=== PATIENT | male | born 1955 | race Caucasian/White ===

== ENCOUNTER → 2022-02-21 08:33 | Outpatient (CLI) | payer OTHER, SELFPAY | PROVIDERS: PCP Family Medicine; Referring Provider Family Medicine; Visit Provider Family Medicine | DX: E11.621 Type 2 diabetes mellitus with foot ulcer (principal); L97.515 Non-pressure chronic ulcer of other part of right foot with muscle involvement without evidence of necrosis; R60.0 Localized edema; L53.9 Erythematous condition, unspecified; L03.115 Cellulitis of right lower limb; Z89.421 Acquired absence of other right toe(s); R53.81 Other malaise; R53.83 Other fatigue; E11.42 Type 2 diabetes mellitus with diabetic polyneuropathy | CPT/HCPCS: 11042; 99204; 99214 ==

== ENCOUNTER 2022-02-21 09:48 | Inpatient (IN) | payer MEDICARE, SELFPAY ==
[2022-02-21] VITALS (15 sets, daily range): BP systolic 128–150; BP diastolic 70–84; PULSE 69–115; RESP 11–25; TEMP 36–37.1; O2SAT 95–99; BMI 28.7
--- NOTE | 2022-02-21 10:16 | DI.RAD.S_ITS ---
PROCEDURE: XR FOOT RT MIN 3V INDICATIONS: deep tunnel wound TECHNIQUE: 3 views of the foot were acquired. COMPARISON: None. FINDINGS: Bones: Remote resection of the distal phalanx of the great toe and fusion of the PIP joints of the 2nd, 3rd, and 4th toes, and screw fixation of the heads of the 2nd and 3rd metatarsals. Midfoot degenerative change. Question early Charcot joint. No plain film evidence of osteomyelitis. No fractures or dislocations. No suspicious bony lesions. Soft tissues: No tibiotalar joint effusion. Achilles tendon appears normal. No soft tissue gas or radiopaque foreign body. IMPRESSION: Postoperative change. No plain film evidence of osteomyelitis. Comment: If suspect osteomyelitis, consider foot MRI with and without contrast. Dictated by: Benoit Baker M.D. on 02/21/2022 at 10:57 Approved by: Benoit Baker M.D. on 02/21/2022 at 10:59
--- NOTE | 2022-02-21 10:27 | PC.NURSE ---
Patient reports feeling tired over the weekend just not myself Being followed by podiatry for wound infection on right foot. Saw Dr Whaley this morning had some debridment and packing done. Patient has redness noted to top and bottom of foot with streaking up crowell.
[2022-02-21 10:32] LABS: Add Manual Diff / Slide Review NO; Basophils Absolute Auto 0 /uL (0-100); Basophils Percent Auto 0.3 % (0-2); Eosinophils Absolute Auto 0 /uL (0-450); Eosinophils Percent Auto 0.1 % (2-4); Hematocrit 43.7 % (41-53); Hemoglobin 14.5 g/dL (13.5-17.5); Lymphocytes Absolute Auto 800 /uL (1100-4500); Lymphocytes Percent Auto 5.3 % (25-40); Mean Corpuscular HGB Conc 33.3 % (30-36); Mean Corpuscular Hemoglobin 28.5 PG (26-34); Mean Corpuscular Volume 85.6 fL (80-100); Monocytes Absolute Auto 900 /uL (0-900); Neutrophils Absolute Auto 12600 /uL (1500-7000); Neutrophils Percent Auto 88.3 % (50-75); Platelet Count 137 X10^3/uL (150-400); Red Cell Distribution Width 14.1 % (11.6-14.8); White Blood Cell Count 14.3 X10^3/uL (4.5-11.0)
[2022-02-21 10:39] LABS: INR 1.3 (0.9-1.3)
[2022-02-21 10:41] LABS: PTT Partial Thromboplastin Tim 33 SECONDS (26-36)
[2022-02-21 10:42] LABS: Lactate (Lactic Acid) 1.3 mmol/L (0.7-2.1)
[2022-02-21 10:43] LABS: Alanine Aminotransferase 20 IU/L (<50); Albumin 4.4 g/dL (3.5-5.0); Albumin Globulin Ratio 1.1 (1.0-2.8); Alkaline Phosphatase 80 U/L (38-126); Aspartate Aminotransferase 24 IU/L (17-59); BUN Creatinine Ratio 19.2 (6-22); Bilirubin Total 1.3 mg/dL (0.2-1.3); Blood Urea Nitrogen 19 mg/dL (9-20); Calcium 9.3 mg/dL (8.4-10.2); Carbon Dioxide 23 mmol/L (22-32); Chloride 98 mmol/L (98-107); Estimated Glomerular Filt Rate > 60 mL/min (>60); Globulin 3.9 g/dL (1.7-4.1); Glucose 145 mg/dL (80-110); HEMOLYSIS < 15 (0-50); Lipase 26 U/L (23-300); Potassium 4.1 mmol/L (3.4-5.1); Sodium 133 mmol/L (137-145); Total Protein 8.3 g/dL (6.3-8.2)
[2022-02-21 10:46] LABS: COVID19 -Nasal RAPID Negative (Negative)
[2022-02-21 11:00] LABS: Procalcitonin 0.21 ng/mL (<0.5)
--- NOTE | 2022-02-21 11:31 | ED_ITS ---
HPI - Extremity Problem General Chief complaint: Extremity Problem,Nontraumatic Stated complaint: right foot infection sent by Wound Care Time Seen by Provider: 02/21/22 10:34 Source: patient and family Mode of arrival: Wheelchair History of Present Illness HPI Narrative: This is a 66-year-old male with history of NM last year, atrial fibrillation, diabetes, prior colorectal cancer, hypertension, dyslipidemia with prior osteomyelitis in his right great toe which was removed, patient has had multiple surgeries on his foot and chronic wound infection in his foot with a new wound that has appeared. Patient saw Dr. Handy from Podiatry about 3 weeks ago and was referred to wound care he was seen today and they recommend patient be seen in the emergency department. Has felt generally unwell for the past 2 days without a fever but had a home temp of a 100? F, noted the ulcer continues to be worsening and erythema is now tracking from the toes and up his forefoot into his leg. He denies chest pain or shortness of. No nausea or vomiting. No diarrhea constipation, no urinary symptoms. Patient states he does not really have any feeling in his foot normally. He has not had any cyanosis or pallor. Related Data Home Medications Medication Instructions Recorded Confirmed amlodipine 5 mg tablet 5 mg PO DAILY 02/21/22 02/21/22 atorvastatin 80 mg tablet 80 mg PO DAILY 02/21/22 02/21/22 clopidogrel 75 mg tablet 75 mg PO DAILY 02/21/22 02/21/22 empagliflozin 25 mg tablet 25 mg PO DAILY 02/21/22 02/21/22 (Jardiance) furosemide 40 mg tablet 40 mg PO DAILY 02/21/22 02/21/22 insulin NPH isoph U-100 human 100 33 unit SUBCUT DAILY 02/21/22 02/21/22 unit/mL subcutaneous suspension (Humulin N NPH U-100 Insulin (isophane susp)) isosorbide mononitrate 30 mg 30 mg PO DAILY 02/21/22 02/21/22 tablet,extended release 24 hr lisinopril 5 mg tablet 5 mg PO DAILY 02/21/22 02/21/22 metformin 1,000 mg tablet 1,000 mg PO BID 02/21/22 02/21/22 semaglutide 1 mg/dose (2 mg/1.5 1 mg SUBCUT QWEEK 02/21/22 02/21/22 mL) subcutaneous pen injector (Ozempic) Allergies Allergy/AdvReac Type Severity Reaction Status Date / Time No Known Drug Allergies Allergy Verified 02/21/22 10:15 Review of Systems Review of Systems ROS Unobtainable: All systems reviewed & are unremarkable except as noted in HPI and below Patient History Medical History Amputation foot, unilat CAD (coronary artery disease) History of amputation of hallux HLD (hyperlipidemia) HTN (hypertension) Osteomyelitis Surgical History H/O knee surgery History of hip surgery Family History Mother Diabetes mellitus Hypertension Father Diabetes mellitus Hypertension Social History household members: spouse Smoking Status: Former smoker alcohol intake: current Smoking Status: Former smoker tobacco type: cigarettes alcohol intake frequency: 0-2 drinks per day Substance Use Type: does not use Exam Narrative Exam Narrative: GENERAL: Alert and oriented x three, well-appearing male in mild distress. HEENT: Head normocephalic, atraumatic, EOMI, pupils reactive, face symmetric, moist mucous membranes NECK: Supple, full range of motion CARDIOVASCULAR: Slightly tachycardic but Regular rate and rhythm without murmurs, rubs or gallops. No JVD. No swelling bilateral lower extremities pretibial. RESPIRATORY: Breath sounds equal bilaterally, no wheezes rales or rhonchi. ABDOMEN: Soft, nontender. Normoactive bowel sounds all 4 quadrants. No guarding or rebound, rigidity, no mass : No CVA tenderness EXTREMITIES: Normal range of motion, no clubbing. Neurovascularly intact. Patient has healed amputation of his right great toe, there is a wound on the ball of the foot that is approximately a cm and half into the subcutaneous tissue there is also a wound between the 2nd and 3rd toes that appears to be a large crack deep into the soft tissue. There is some foul odor there is no active purulent drainage there is a wick in place. Patient has erythema tracking from the dorsum of into the toes and up ankle. Areas warm to touch. Patient has minimal sensation to touch on exam. Cap refill is less than 2 secon ds bilateral. NEUROLOGICAL: Cranial nerves II through XII grossly intact. Moving all extremities SKIN: Warm, dry, no petechiae, no rashes or lesions. Initial Vital Signs Initial Vital Signs: Vital Signs Temperature 97.5 F L 02/21/22 10:05 Pulse Rate 115 H 02/21/22 10:05 Respiratory Rate 20 02/21/22 10:05 Blood Pressure 144/84 H 02/21/22 10:05 Pulse Oximetry 99 02/21/22 10:05 Oxygen Delivery Method 02/21/22 10:05 Course Orders Ordered: ED Orders 02/21/22 10:16 XR foot RT min 3V Stat 02/21/22 10:18 CRP [C-Reactive Protein Quant] Stat Complete Blood Count AUTO DIFF Stat Comprehensive Metabolic Panel Stat ESR [Erythrocyte Sedimentation Rate] Stat Lactate (Lactic Acid) Stat Lipase Stat Partial Thromboplastin Time Stat Procalcitonin Stat Prothrombin Time INR Stat 02/21/22 10:24 COVID19 -Nasal RAPID/Pre-Proc Stat 02/21/22 10:25 Blood Culture Stat 02/21/22 12:25 MR foot RT wo/w con Stat 02/21/22 12:30 Wound Culture and Gram Stain Stat Amlodipine Besylate (Amlodipine 5 Mg Tablet) 5 mg PO DAILY AC Atorvastatin Calcium (Atorvastatin 20 Mg Tablet) 80 mg PO DAILY AC Clopidogrel Bisulfate (Clopidogrel 75 Mg Tablet) 75 mg PO DAILY AC Dextrose (Dextrose 50 % In Water 25 Gm/50 Ml Syringe) 25 gm IV PRN PRN PRN Reason: Hypoglycemia Furosemide (Furosemide 40 Mg Tablet) 40 mg PO DAILY AC Hydromorphone HCl (Hydromorphone 0.5 Mg Inj) 0.5 mg IV Q4H PRN PRN Reason: Pain, Moderate (4-6) Hydromorphone HCl (Hydromorphone 1 Mg Inj) 1 mg IV Q4H PRN PRN Reason: Pain, Severe (7-10) Cefepime HCl 2 gm/ Sodium (Chloride) 100 mls @ 200 mls/hr IV Q12H AC Vancomycin HCl (Vancomycin) 1,250 mg in 250 mls @ 250 mls/hr IV Q12H AC Influenza Virus Vaccine (Influenza Hd Vaccine 0.7 Ml Syringe) 0.7 ml IM .ONCE ONE Stop: 02/23/22 09:01 Insulin Glargine (Insulin Glargine 100 Unit/Ml 3ml Pen) 20 unit SUBCUT 2100 [facility] Insulin Human Lispro (Insulin Lispro 100 Unit/Ml 3ml Vial) 0 unit SUBCUT ACHS [facility]; Protocol Last Admin: 02/21/22 17:28 Dose: 2 unit Documented By: CASSIE Co-signed By: JONO Isosorbide Mononitrate (Isosorbide Mononitrate Er 30 Mg Tablet) 30 mg PO DAILY [facility] Lisinopril (Lisinopril 5 Mg Tablet) 5 mg PO DAILY [facility] Naloxone HCl (Naloxone 0.4 Mg/Ml Vial) 0.2 mg IV Q2MIN PRN PRN Reason: Opiate Reversal Ondansetron HCl (Ondansetron 4 Mg/2 Ml Inj) 4 mg IV Q8HR PRN PRN Reason: Nausea And Vomiting Vancomycin HCl (Vancomycin Trough) 1 request MISC 1330 ONE Stop: 02/23/22 13:31 Vancomycin HCl (Vancomycin Peak) 1 request MISC 1630 ONE Stop: 02/23/22 16:31 Discontinued Medications Vancomycin HCl/Dextrose (Vancomycin) 2,000 mg in 400 mls @ 200 mls/hr IV NOW ONE Stop: 02/21/22 13:48 Last Admin: 02/21/22 11:49 Dose: Not Given Documented By: JONO Cefepime HCl 2 gm/ Sodium (Chloride) 100 mls @ 200 mls/hr IV NOW ONE Stop: 02/21/22 11:50 Last Infusion: 02/21/22 13:10 Dose: 200 mls/hr Documented By: Admin: 02/21/22 12:34 Dose: 200 mls/hr Documented By: VINH Sodium Chloride (Normal Saline 0.9%) 1,000 mls @ 1,000 mls/hr IV BOLUS ONE Stop: 02/21/22 12:49 Last Infusion: 02/21/22 13:10 Dose: 200 mls/hr Documented By: Infusion: 02/21/22 12:34 Dose: 200 mls/hr Documented By: Admin: 02/21/22 12:33 Dose: 1,000 mls/hr Documented By: VINH Sodium Chloride (Normal Saline 0.9%) 1,000 mls @ 100 mls/hr IV CONT AC Last Admin: 02/21/22 15:49 Dose: 100 mls/hr Documented By: JONO Vancomycin HCl/Dextrose (Vancomycin) 2,000 mg in 400 mls @ 200 mls/hr IV NOW ONE Stop: 02/21/22 16:14 Last Admin: 02/21/22 15:46 Dose: 200 mls/hr Documented By: JONO Consultations Consultation #1: Dr. Sesay, hospitalist. Does ask if we can reach out to orthopedic surgery/Podiatry or Dr. Weller who is on today for plan. Will go ahead and order MRI unclear if patient can have this he does have some hardware but might be a candidate. Antibiotics have been initiated. Time: 12:28 Consultation #2: Dr. Kwok, Podiatry. Is happy to see patient but will probably be tomorrow afternoon. Agrees with plan for antibiotics slightly not OR at this time as patient does not appear toxic. She does ask that we go through the usual on- call channels and case someone else is able to see the patient sooner or needs OR time sooner. Time: 13:00 Consultation #3: Dr. Weller, orthopedic surgery. Discussed that I spoke with Dr. Kwok, he defers treatment to her and does not have anything to add at this time and asked that I put her as the notified physician. Time: 13:01 Vital Signs Vital signs: Vital Signs - 8 hr 02/21/22 11:00 02/21/22 11:30 02/21/22 12:00 Pulse Rate 94 H 104 H 100 H Respiratory Rate 14 12 24 Pulse Oximetry 95 98 98 MDM - Extremity (Nontraumatic) Lab Data Result diagrams: 02/21/22 10:18 02/21/22 10:18 Labs: Lab Results 02/21/22 02/21/22 02/21/22 Range/Units 10:18 10:18 10:18 WBC 14.3 H (4.5-11.0) X10^3/uL RBC 5.10 (4.5-5.9) X10^6/uL Hgb 14.5 (13.5-17.5) g/dL Hct 43.7 (41-53) % MCV 85.6 (80-100) fL MCH 28.5 (26-34) PG MCHC 33.3 (30-36) % RDW 14.1 (11.6-14.8) % Plt Count 137 L (150-400) X10^3/uL Neut % (Auto) 88.3 H (50-75) % Lymph % (Auto) 5.3 L (25-40) % Band[place] % (Auto) 6.0 (3-14) % Eos % (Auto) 0.1 L (2-4) % Baso % (Auto) 0.3 (0-2) % Neut # (Auto) 94185 H (3347-3874) /uL Lymph # (Auto) 800 L (8500-8598) /uL [place] # (Auto) 900 (0-900) /uL Eos # (Auto) 0 (0-450) /uL Baso # (Auto) 0 (0-100) /uL ESR (0-15) MM/HR PT 15.0 H (10.1-12.7) SECONDS INR 1.3 (0.9-1.3) APTT 33 (26-36) SECONDS Sodium 133 L (137-145) mmol/L Potassium 4.1 (3.4-5.1) mmol/L Chloride 98 (98-107) mmol/L Carbon Dioxide 23 (22-32) mmol/L BUN 19 (9-20) mg/dL Creatinine 0.99 (0.66-1.25) mg/dL Estimated GFR > 60 (>60) mL/min BUN/Creatinine Ratio 19.2 (6-22) Glucose 145 H (80-110) mg/dL Lactate (0.7-2.1) mmol/L Calcium 9.3 (8.4-10.2) mg/dL Total Bilirubin 1.3 (0.2-1.3) mg/dL AST 24 (17-59) IU/L ALT 20 (<50) IU/L Alkaline Phosphatase 80 (38-126) U/L C-Reactive Protein (<1.0) mg/dL Total Protein 8.3 H (6.3-8.2) g/dL Albumin 4.4 (3.5-5.0) g/dL Globulin 3.9 (1.7-4.1) g/dL Albumin/Globulin Ratio 1.1 (1.0-2.8) Lipase 26 (23-300) U/L Procalcitonin 0.21 (<0.5) ng/mL SARS-CoV-2 (PCR) (Negative) 02/21/22 02/21/22 02/21/22 Range/Units 10:18 10:18 10:18 WBC (4.5-11.0) X10^3/uL RBC (4.5-5.9) X10^6/uL Hgb (13.5-17.5) g/dL Hct (41-53) % MCV (80-100) fL MCH (26-34) PG MCHC (30-36) % RDW (11.6-14.8) % Plt Count (150-400) X10^3/uL Neut % (Auto) (50-75) % Lymph % (Auto) (25-40) % [place] % (Auto) (3-14) % Eos % (Auto) (2-4) % Baso % (Auto) (0-2) % Neut # (Auto) (0907-6862) /uL Lymph # (Auto) (9044-7589) /uL Band[place] # (Auto) (0-900) /uL Eos # (Auto) (0-450) /uL Baso # (Auto) (0-100) /uL ESR 44 H (0-15) MM/HR PT (10.1-12.7) SECONDS INR (0.9-1.3) APTT (26-36) SECONDS Sodium (137-145) mmol/L Potassium (3.4-5.1) mmol/L Chloride (98-107) mmol/L Carbon Dioxide (22-32) mmol/L BUN (9-20) mg/dL Creatinine (0.66-1.25) mg/dL Estimated GFR (>60) mL/min BUN/Creatinine Ratio (6-22) Glucose (80-110) mg/dL Lactate 1.3 (0.7-2.1) mmol/L Calcium (8.4-10.2) mg/dL Total Bilirubin (0.2-1.3) mg/dL AST (17-59) IU/L ALT (<50) IU/L Alkaline Phosphatase (38-126) U/L C-Reactive Protein 8.8 H (<1.0) mg/dL Total Protein (6.3-8.2) g/dL Albumin (3.5-5.0) g/dL Globulin (1.7-4.1) g/dL Albumin/Globulin Ratio (1.0-2.8) Lipase (23-300) U/L Procalcitonin (<0.5) ng/mL SARS-CoV-2 (PCR) (Negative) 02/21/22 Range/Units 10:24 WBC (4.5-11.0) X10^3/uL RBC (4.5-5.9) X10^6/uL Hgb (13.5-17.5) g/dL Hct (41-53) % MCV (80-100) fL MCH (26-34) PG MCHC (30-36) % RDW (11.6-14.8) % Plt Count (150-400) X10^3/uL Neut % (Auto) (50-75) % Lymph % (Auto) (25-40) % [place] % (Auto) (3-14) % Eos % (Auto) (2-4) % Baso % (Auto) (0-2) % Neut # (Auto) (5193-4967) /uL Lymph # (Auto) (8583-5374) /uL [place] # (Auto) (0-900) /uL Eos # (Auto) (0-450) /uL Baso # (Auto) (0-100) /uL ESR (0-15) MM/HR PT (10.1-12.7) SECONDS INR (0.9-1.3) APTT (26-36) SECONDS Sodium (137-145) mmol/L Potassium (3.4-5.1) mmol/L Chloride (98-107) mmol/L Carbon Dioxide (22-32) mmol/L BUN (9-20) mg/dL Creatinine (0.66-1.25) mg/dL Estimated GFR (>60) mL/min BUN/Creatinine Ratio (6-22) Glucose (80-110) mg/dL Lactate (0.7-2.1) mmol/L Calcium (8.4-10.2) mg/dL Total Bilirubin (0.2-1.3) mg/dL AST (17-59) IU/L ALT (<50) IU/L Alkaline Phosphatase (38-126) U/L C-Reactive Protein (<1.0) mg/dL Total Protein (6.3-8.2) g/dL Albumin (3.5-5.0) g/dL Globulin (1.7-4.1) g/dL Albumin/Globulin Ratio (1.0-2.8) Lipase (23-300) U/L Procalcitonin (<0.5) ng/mL SARS-CoV-2 (PCR) Negative (Negative) Imaging Data Extremity x-ray #1: Radiologist's Impression: [address] [address] XRay Report Signed Patient: Sidney Swartz MR#: [id number] : 1955 Acct:[id number] Age/Sex: 66 / M Date of Service: 02/21/22 Loc: ED Accession Number: [id number] ?? Procedure: XR foot RT min 3V Ordering Provider: Danuta Alvarez D.O. PROCEDURE:? XR FOOT RT MIN 3V ? INDICATIONS:? deep tunnel wound ? TECHNIQUE:? 3 views of the foot were acquired.? ? COMPARISON:? None. ? FINDINGS:? ? Bones:? Remote resection of the distal phalanx of the great toe and fusion of the PIP joints of the 2nd, 3rd, and 4th toes, and screw fixation of the heads of the 2nd and 3rd metatarsals.? Midfoot degenerative change.? Question early Charcot joint.? No plain film evidence of osteomyelitis.? No fractures or dislocations.? No suspicious bony lesions.? ? Soft tissues:? No tibiotalar joint effusion.? Achilles tendon appears normal.? No soft tissue gas or radiopaque foreign body. ? ? IMPRESSION:? Postoperative change.? No plain film evidence of osteomyelitis. ? Comment:? If suspect osteomyelitis, consider foot MRI with and without contrast. ? ? Dictated by: Benoit Baker M.D. on 02/21/2022 at 10:57 ? ? Approved by: Benoit Baker M.D. on 02/21/2022 at 10:59?? [facility] Narrative Medical decision making narrative: This is a 66-year-old male who meet septic criteria with wounds on his right foot with a history of prior osteomyelitis multiple surgical hardware placed who was recently saw his treating inspector Dr. Kwok 3 weeks ago and presented to the [facility] today. Patient appears to be developing an infection of the wound unclear if there is possible osteomyelitis he has a white count, ESR CRP are pending, procalcitonin is negative, x-ray does not show obvious osteo. Spoke with hospitalist accepts for admission. Plan to try to obtain MRI if were able to although patient has a lot of hardware. Reaching out to Orthopedics or Podiatry as patient is established with Dr. Kwok for further plan. Patient covered with Rocephin and cefepime. I did not give a 30 cc/kilos bolus as patient has a cardiac history not appropriate at this time but will start with initial fluid bolus. Spoke with Podiatry and Orthopedic surgery, relayed their thoughts to Dr. Sesay. Critical Care Time Critical Care Time Attestation: The high probability of a clinically significant, sudden or life threatening deterioration of the [] system(s) required my full and direct attention, intervention and personal management. The aggregate critical care time was [] m inutes. This time is in addition to time spent performing reported procedures but includes the following: [x] Data Review and interpretation [x] Patient assessment and monitoring of vital signs [x] Documentation [x] Medication orders and management Discharge Plan Departure Patient Disposition: Admitted As Inpatient Clinical Impression: Infected wound, Cellulitis, Sepsis Admit Date/Time: 02/21/22 12:28 Admit Provider: Curry Sesay
[2022-02-21 11:58] LABS: C-Reactive Protein Quant 8.8 mg/dL (<1.0)
[2022-02-21 12:06] LABS: Erythrocyte Sedimentation Rate 44 MM/HR (0-15)
--- NOTE | 2022-02-21 12:25 | DI.MRI.S_ITS ---
PROCEDURE: MR FOOT RT WO/W CON INDICATIONS: infected diabetic wound/ r/o osteo TECHNIQUE: Noncontrast coronal T1 spin echo and STIR, sagittal T1 spin echo with fat saturation and STIR, axial T1 spin echo and T2 fast spin echo with fat saturation. After the administration of contrast, axial/sagittal/coronal T1 spin echo with fat saturation through the right foot. COMPARISON: [facility], CR, XR FOOT RT MIN 3V, 02/21/2022, 10:27. FINDINGS: Image quality: Excellent. Bones: There is prior amputation of great toe at the level of 1st proximal phalangeal head. Surgical margin appears clean. No bony erosive changes are seen. No marrow edema. Prior fixation of 2nd through 4th PIP joints are seen with susceptibility artifacts. Similar susceptibility artifacts in 2nd and 3rd metatarsal heads are also noted. No evidence of bony erosion or cortical destruction is seen to suggest osteomyelitis. No suspicious intraosseous lesion. No acute fracture or dislocation. Soft tissues: There is full-thickness ulceration involving plantar aspect of right foot at the level of 3rd and 4th MTP joint/proximal phalanges. Extensive subcutaneous soft tissue edema and swelling deep to the site of ulceration is seen extending to dorsum of midfoot and forefoot consistent with extensive cellulitis. No discrete drainable abscess collection is noted. Visualized plantar foot muscle shows mild edema without discrete drainable intramuscular fluid collection. No full-thickness extensor or flexor tendon rupture is seen. IMPRESSION: 1. Full-thickness ulceration involving plantar aspect of forefoot at the level of MTP joint/proximal phalanges with extensive cellulitis deep to the site of ulceration, surrounding 2nd, 3rd and 4th MTP joints and proximal phalangeal shaft and along dorsal aspect of midfoot and forefoot. No discrete drainable abscess collection is seen. 2. Postsurgical changes in 1st through 4th toes as described above. No marrow edema. No bony erosive changes. No MR evidence of osteomyelitis. No acute fracture or dislocation. 3. Mild myositis involving plantar foot muscles. No intramuscular fluid collection. Dictated by: Ty Washburn M.D. on 02/21/2022 at 15:27 Approved by: Ty Washburn M.D. on 02/21/2022 at 15:33
[2022-02-21] MEDS: SODIUM CHLORIDE 0.9% 1,000 ML 1000 ML IV (12:33)
[2022-02-21] MEDS: CEFEPIME 2 GM in SODIUM CHLORIDE 0.9% 100 ML IV ×2 (12:34→23:29)
[2022-02-21] MEDS: VANCOMYCIN 2,000 MG/400 ML PIGGYBACK 200 MG IV (15:46)
[2022-02-21] MEDS: SODIUM CHLORIDE 0.9% 1,000 ML 100 ML IV (15:49)
--- NOTE | 2022-02-21 16:04 | PM.HP.1 ---
History of Present Illness History of Present Illness Date Patient Seen: 02/21/22 Time Patient Seen: 15:45 Chief complaint: right foot infection sent by Wound Care Narrative: 66 M with PMH of CAD, HTN, HLD, DM2, osteomyelitis of R foot and chronic diabetic foot wounds who presented from Wound care clinic for further evaluation. He states this morning he developed worsening redness on his R foot but had a scheduled wound care appointment anyway. He was referred to the ER from wound care after evaluation. He denies pain as he has bilateral neuropathy. He denies subjective fever or chills, but did feel a generalized malaise over the past few days. Redness began to develop he thinks this morning. He has a history of chronic infections in that foot, and prior history of prolonged IV antibiotics as well as an amputation of his 1st toe on the R due to osteomyelitis. In the emergency room, he was mildly hypertensive and tachycardic but the remainder of his vital signs were unremarkable. Laboratory evaluation showed a leukocytosis and thrombocytopenia, coagulation studies were unremarkable, chemistries showed a mild hyponatremia with sodium of 133, glucose is 145, the remainder of his chemistry panel was largely unremarkable. CRP was elevated at 8.8, and ESR was 44. The ER physician spoke with Orthopedic surgery who deferred evaluation to podiatry, whom the patient saw a few weeks ago and was referred to wound care. He was admitted for IV antibiotics and surgical evaluation. Patient History Medical History (Updated 02/21/22 @ 16:08 by Curry Sesay DO) Amputation foot, unilat CAD (coronary artery disease) History of amputation of hallux HLD (hyperlipidemia) HTN (hypertension) Osteomyelitis Surgical History (Updated 02/21/22 @ 16:08 by Curry Sesay DO) H/O knee surgery History of hip surgery Family & Social History Family History (Updated 02/21/22 @ 16:08 by Curry Sesay DO) Mother Diabetes mellitus Hypertension Father Diabetes mellitus Hypertension Social History: household members spouse Prior Living Arrangements House Safety & Behavioral: Feels Safe in Current Yes Environment Been Physically Hurt or No Threatened By a Person Tobacco & Substance use: Tobacco type cigarettes Smoking Status Former smoker alcohol intake current alcohol intake frequency a few times a month Substance Use Type does not use Meds Home Medications and Allergies Home Medications Medication Instructions Recorded Confirmed Type amlodipine 5 mg tablet 5 mg PO DAILY 02/21/22 02/21/22 History atorvastatin 80 mg tablet 80 mg PO DAILY 02/21/22 02/21/22 History clopidogrel 75 mg tablet 75 mg PO DAILY 02/21/22 02/21/22 History empagliflozin 25 mg tablet 25 mg PO DAILY 02/21/22 02/21/22 History (Jardiance) furosemide 40 mg tablet 40 mg PO DAILY 02/21/22 02/21/22 History insulin NPH isoph U-100 human 100 33 unit SUBCUT DAILY 02/21/22 02/21/22 History unit/mL subcutaneous suspension (Humulin N NPH U-100 Insulin (isophane susp)) isosorbide mononitrate 30 mg 30 mg PO DAILY 02/21/22 02/21/22 History tablet,extended release 24 hr lisinopril 5 mg tablet 5 mg PO DAILY 02/21/22 02/21/22 History metformin 1,000 mg tablet 1,000 mg PO BID 02/21/22 02/21/22 History semaglutide 1 mg/dose (2 mg/1.5 1 mg SUBCUT QWEEK 02/21/22 02/21/22 History mL) subcutaneous pen injector (Ozempic) Allergies Allergy/AdvReac Type Severity Reaction Status Date / Time No Known Drug Allergies Allergy Verified 02/21/22 10:15 Review of Systems Review of Systems Narrative: All other systems reviewed with the patient and are negative unless otherwise stated. Exam Vital Signs (past 8 hours): - 02/21/22 10:05 02/21/22 10:17 02/21/22 10:30 Temperature 97.5 F L Pulse Rate 115 H 103 H 113 H Respiratory Rate 20 15 24 Blood Pressure 144/84 H Pulse Oximetry 99 98 Oxygen Delivery Method Room Air Oxygen Flow Rate 02/21/22 11:00 02/21/22 11:30 02/21/22 12:00 Temperature Pulse Rate 94 H 104 H 100 H Respiratory Rate 14 12 24 Blood Pressure Pulse Oximetry 95 98 98 Oxygen Delivery Method Oxygen Flow Rate 02/21/22 12:30 02/21/22 12:34 02/21/22 12:34 Temperature Pulse Rate 103 H 92 H Respiratory Rate 25 H 11 L Blood Pressure 132/81 Pulse Oximetry 98 98 Oxygen Delivery Method Oxygen Flow Rate 02/21/22 12:37 02/21/22 15:13 Temperature 97.3 F L Pulse Rate 92 H 92 H Respiratory Rate 11 L 16 Blood Pressure 132/81 150/70 H Pulse Oximetry 98 98 Oxygen Delivery Method Oxygen Flow Rate 0 0 Oxygen Delivery Method Room Air Oxygen Flow Rate 0 Narrative Exam Narrative: General:? Patient is well developed and well nourished, in no distress at this time. HEENT:? Normocephalic, atraumatic, extraocular muscles intact, oral pharynx is clear and mucous membranes are moist. Neck: supple and symmetric, trachea is midline, no cervical adenopathy. Negative for JVD Chest:? Normal AP diameter and contour without kyphoscoliosis, no tachypnea, equal chest rise bilaterally. Lungs:? CTA b/l no wheezing rhonchi or rales. Cardio:?RRR no m/r/g. Abdomen: S NT ND. Musculoskeletal:? Muscle strength and tone are equal within normal limits, no deformity. Extremities: No edema or joint effusions. No cyanosis or clubbing. Skin:?lower extremity chronic venous stasis changes bilaterally. R foot, between 2nd and 3rd toes there is a small ulceration, on the ball of his foot there is a deep penetrating wound, wick was in place and extended a few cm deep, no apparent bone visible. there was some mild purulent drainage that was malodorous, with surrounding erythema that extends to the dorsal aspect of his foot and tacks to his midfoot. Neuro:? Alert and orientated x3,? sensation to touch intact in all extremities, no gross deficits noted of cranial nerves. Psych:? Patient has a well-kept appearance, appropriate affect, mental status attitude thought context and judgment are appropriate for age. Objective Labs Result Diagrams: 02/21/22 10:18 02/21/22 10:18 Labs: Laboratory Results - last 24 hr 02/21/22 02/21/22 02/21/22 10:18 10:18 10:18 WBC 14.3 H RBC 5.10 Hgb 14.5 Hct 43.7 MCV 85.6 MCH 28.5 MCHC 33.3 RDW 14.1 Plt Count 137 L Neut % (Auto) 88.3 H Lymph % (Auto) 5.3 L [place] % (Auto) 6.0 Eos % (Auto) 0.1 L Baso % (Auto) 0.3 Neut # (Auto) 66863 H Lymph # (Auto) 800 L [place] # (Auto) 900 Eos # (Auto) 0 Baso # (Auto) 0 ESR PT 15.0 H INR 1.3 APTT 33 Sodium 133 L Potassium 4.1 Chloride 98 Carbon Dioxide 23 BUN 19 Creatinine 0.99 Estimated GFR > 60 BUN/Creatinine Ratio 19.2 Glucose 145 H Lactate Calcium 9.3 Total Bilirubin 1.3 AST 24 ALT 20 Alkaline Phosphatase 80 C-Reactive Protein Total Protein 8.3 H Albumin 4.4 Globulin 3.9 Albumin/Globulin Ratio 1.1 Lipase 26 Procalcitonin 0.21 SARS-CoV-2 (PCR) 02/21/22 02/21/22 02/21/22 10:18 10:18 10:18 WBC RBC Hgb Hct MCV MCH MCHC RDW Plt Count Neut % (Auto) Lymph % (Auto) [place] % (Auto) Eos % (Auto) Baso % (Auto) Neut # (Auto) Lymph # (Auto) [place] # (Auto) Eos # (Auto) Baso # (Auto) ESR 44 H PT INR APTT Sodium Potassium Chloride Carbon Dioxide BUN Creatinine Estimated GFR BUN/Creatinine Ratio Glucose Lactate 1.3 Calcium Total Bilirubin AST ALT Alkaline Phosphatase C-Reactive Protein 8.8 H Total Protein Albumin Globulin Albumin/Globulin Ratio Lipase Procalcitonin SARS-CoV-2 (PCR) 02/21/22 10:24 WBC RBC Hgb Hct MCV MCH MCHC RDW Plt Count Neut % (Auto) Lymph % (Auto) [place] % (Auto) Eos % (Auto) Baso % (Auto) Neut # (Auto) Lymph # (Auto) [place] # (Auto) Eos # (Auto) Baso # (Auto) ESR PT INR APTT Sodium Potassium Chloride Carbon Dioxide BUN Creatinine Estimated GFR BUN/Creatinine Ratio Glucose Lactate Calcium Total Bilirubin AST ALT Alkaline Phosphatase C-Reactive Protein Total Protein Albumin Globulin Albumin/Globulin Ratio Lipase Procalcitonin SARS-CoV-2 (PCR) Negative Assessment & Plan Assessment & Plan narrative: 1. R foot diabetic foot ulceration with possible osteomyelitis, with corresponding R foot cellulitis and possible sepsis with thrombocytopenia and elevated bilirubin. - pending orthopedic / podiatry evaluation for possible debridement of ulceration - MRI ordered given depth of ulceration to evaluate for osteomyelitis, ESR elevated at 44 and CRP is 8.8. - continue cefepime and vanco given diabetes to cover for pseudomonas and MRSA, wound cultures sent from the ER. - erythema on admission extends to midfoot, continue to follow - SOFA score of 2 with thrombocytopenia and elevated bilirubin, antibiotics as discussed above. 2. CAD - continue home asa/plavix 3. DM - hold home oral medications at this time. takes 33U NPH daily. Change to 20 units lantus at bedtime, and sliding scale coverage for now. Adjust as needed. 4. HTN - continue home medications 5. HLD - continue home statin 6. Hyponatremia, mild, unknown chronicity - mild hyponatremia with Na of 133. Continue to follow, currently without symptoms. I have utilized all available immediate resources to obtain, update, or review the patient's current medications. Code: Full, surrogate is patient's spouse DVT: hold pending orthopedic evaluation, can have SCDs Dispo: patient admitted as inpatient given complexity of his R foot ulceration with need for possible prolonged antibiotics and possible surgical interventions with his expected stay to exceed two midnights. COVID-19 COVID-19 status: Negative Time Spent With Patient Critical Care time: I spent a total of [] minutes of critical care time on this patient's care today; this time is exclusive of procedural time. Scores SOFA PaO2/FIO2: >=400 mmHg Platelets: < 150 Bilirubin: 1.2-1.9 mg/dL Hypotension: MAP >= 70 mmHg Meryl Coma Scale: 15 Renal: < 1.2 mg/dL SOFA Score: 2 Quality VTE Deep Vein Thrombosis/Pulmonary Embolism Present on Admission: No MIPS - Admit I confirm the patient?s Advance Care Plan is present, Code status is documented, Surrogate decision maker is in patient?s record [If Yes, STOP here]: Yes
--- NOTE | 2022-02-21 16:41 | PM.CN ---
History of Present Illness Consult details Date Patient Seen: 02/21/22 Time Patient Seen: 16:42 Chief complaint: right foot infection sent by Wound Care Narrative: 66-year-old gentleman who is a patient of Dr. Kwok's who was seen by wound care earlier today and there was some concern of a possible infection due to an ulcer the plantar aspect of his foot. Due to this fact, the patient was admitted for IV antibiotics. Dr. Kwok is aware that the patient has been admitted and is planning on seeing the patient tomorrow. Patient states that over the weekend started to feel little run down and thinks that when his symptoms started. Denies any drainage. Denies any fevers or chills. Meds Home Medications and Allergies Home Medications Medication Instructions Recorded Confirmed Type amlodipine 5 mg tablet 5 mg PO DAILY 02/21/22 02/21/22 History atorvastatin 80 mg tablet 80 mg PO DAILY 02/21/22 02/21/22 History clopidogrel 75 mg tablet 75 mg PO DAILY 02/21/22 02/21/22 History empagliflozin 25 mg tablet 25 mg PO DAILY 02/21/22 02/21/22 History (Jardiance) furosemide 40 mg tablet 40 mg PO DAILY 02/21/22 02/21/22 History insulin NPH isoph U-100 human 100 33 unit SUBCUT DAILY 02/21/22 02/21/22 History unit/mL subcutaneous suspension (Humulin N NPH U-100 Insulin (isophane susp)) isosorbide mononitrate 30 mg 30 mg PO DAILY 02/21/22 02/21/22 History tablet,extended release 24 hr lisinopril 5 mg tablet 5 mg PO DAILY 02/21/22 02/21/22 History metformin 1,000 mg tablet 1,000 mg PO BID 02/21/22 02/21/22 History semaglutide 1 mg/dose (2 mg/1.5 1 mg SUBCUT QWEEK 02/21/22 02/21/22 History mL) subcutaneous pen injector (Ozempic) Allergies Allergy/AdvReac Type Severity Reaction Status Date / Time No Known Drug Allergies Allergy Verified 02/21/22 10:15 Exam Vital Signs (past 8 hours): - 02/21/22 10:05 02/21/22 10:17 02/21/22 10:30 Temperature 97.5 F L Pulse Rate 115 H 103 H 113 H Respiratory Rate 20 15 24 Blood Pressure 144/84 H Pulse Oximetry 99 98 Oxygen Delivery Method Room Air Oxygen Flow Rate 02/21/22 11:00 02/21/22 11:30 02/21/22 12:00 Temperature Pulse Rate 94 H 104 H 100 H Respiratory Rate 14 12 24 Blood Pressure Pulse Oximetry 95 98 98 Oxygen Delivery Method Oxygen Flow Rate 02/21/22 12:30 02/21/22 12:34 02/21/22 12:34 Temperature Pulse Rate 103 H 92 H Respiratory Rate 25 H 11 L Blood Pressure 132/81 Pulse Oximetry 98 98 Oxygen Delivery Method Oxygen Flow Rate 02/21/22 12:37 02/21/22 15:13 Temperature 97.3 F L Pulse Rate 92 H 92 H Respiratory Rate 11 L 16 Blood Pressure 132/81 150/70 H Pulse Oximetry 98 98 Oxygen Delivery Method Oxygen Flow Rate 0 0 Oxygen Delivery Method Room Air Oxygen Flow Rate 0 Narrative Exam Narrative: Patient's dressing was removed today. Patient does have an ulcer to the plantar aspect of the foot which is packed with iodoform. No sign of any purulent drainage. Some erythema around the ulcer site. No sign of any obvious abscess formation. Signs of some hammertoes as well as previous surgery to his 1st toe. No sign of any dorsal issues. Objective Labs Result Diagrams: 02/21/22 10:18 02/21/22 10:18 Labs: Laboratory Results - last 24 hr 02/21/22 02/21/22 02/21/22 10:18 10:18 10:18 WBC 14.3 H RBC 5.10 Hgb 14.5 Hct 43.7 MCV 85.6 MCH 28.5 MCHC 33.3 RDW 14.1 Plt Count 137 L Neut % (Auto) 88.3 H Lymph % (Auto) 5.3 L [place] % (Auto) 6.0 Eos % (Auto) 0.1 L Baso % (Auto) 0.3 Neut # (Auto) 16067 H Lymph # (Auto) 800 L [place] # (Auto) 900 Eos # (Auto) 0 Baso # (Auto) 0 ESR PT 15.0 H INR 1.3 APTT 33 Sodium 133 L Potassium 4.1 Chloride 98 Carbon Dioxide 23 BUN 19 Creatinine 0.99 Estimated GFR > 60 BUN/Creatinine Ratio 19.2 Glucose 145 H Lactate Calcium 9.3 Total Bilirubin 1.3 AST 24 ALT 20 Alkaline Phosphatase 80 C-Reactive Protein Total Protein 8.3 H Albumin 4.4 Globulin 3.9 Albumin/Globulin Ratio 1.1 Lipase 26 Procalcitonin 0.21 SARS-CoV-2 (PCR) 02/21/22 02/21/22 02/21/22 10:18 10:18 10:18 WBC RBC Hgb Hct MCV MCH MCHC RDW Plt Count Neut % (Auto) Lymph % (Auto) [place] % (Auto) Eos % (Auto) Baso % (Auto) Neut # (Auto) Lymph # (Auto) [place] # (Auto) Eos # (Auto) Baso # (Auto) ESR 44 H PT INR APTT Sodium Potassium Chloride Carbon Dioxide BUN Creatinine Estimated GFR BUN/Creatinine Ratio Glucose Lactate 1.3 Calcium Total Bilirubin AST ALT Alkaline Phosphatase C-Reactive Protein 8.8 H Total Protein Albumin Globulin Albumin/Globulin Ratio Lipase Procalcitonin SARS-CoV-2 (PCR) 02/21/22 10:24 WBC RBC Hgb Hct MCV MCH MCHC RDW Plt Count Neut % (Auto) Lymph % (Auto) [place] % (Auto) Eos % (Auto) Baso % (Auto) Neut # (Auto) Lymph # (Auto) [place] # (Auto) Eos # (Auto) Baso # (Auto) ESR PT INR APTT Sodium Potassium Chloride Carbon Dioxide BUN Creatinine Estimated GFR BUN/Creatinine Ratio Glucose Lactate Calcium Total Bilirubin AST ALT Alkaline Phosphatase C-Reactive Protein Total Protein Albumin Globulin Albumin/Globulin Ratio Lipase Procalcitonin SARS-CoV-2 (PCR) Negative [facility] Medical History Amputation foot, unilat CAD (coronary artery disease) History of amputation of hallux HLD (hyperlipidemia) HTN (hypertension) Osteomyelitis Surgical History H/O knee surgery History of hip surgery Family History Mother Diabetes mellitus Hypertension Father Diabetes mellitus Hypertension Social History household members: spouse Tobacco & Substance Use Smoking Status: Former smoker alcohol intake: current Assessment & Plan Assessment & Plan narrative: Patient with a history of foot ulcers which has been treated by Dr. Kwok recently. Patient scheduled for an MRI to look for signs of any osteomyelitis. Dr. Kwok is planning on seeing the patient tomorrow to determine further treatment and care. Time Spent With Patient Critical Care time: I spent a total of [] minutes of critical care time on this patient's care today; this time is exclusive of procedural time.
[2022-02-21] MEDS: INSULIN LISPRO 100 UNIT/ML 3ML VIAL SUBCUT (17:28)
--- NOTE | 2022-02-21 19:29 | PC.NURSE ---
Pt arrived from ED at approximately 1305. He is placed on telemetry AFIB, BBB HR 70's. He denies any dizziness, Palpitations, or CP. He is taken for MRI at 1415, after a late lunch. Hospitalist at bedside evaluating his wound and dressing placed on R foot. BG 142 this evening. VSS, afebrile on RA. Vanco mycin tolerated well this afternoon. IVF NS @100ml/hr. Continuous monitoring.
[2022-02-21] MEDS: INSULIN GLARGINE 100 UNIT/ML 3ML PEN 20 UNIT SUBCUT (21:12)
[2022-02-21] MEDS: TEMAZEPAM 15 MG CAPSULE PO (21:12)
[2022-02-22] VITALS (10 sets, daily range): BP systolic 111–127; BP diastolic 62–79; PULSE 81–93; RESP 17–18; TEMP 36.2–36.6; O2SAT 97–100
[2022-02-22] MEDS: VANCOMYCIN 1,250 MG/250 ML PIGGYBACK 250 MG IV ×2 (02:52→13:48)
[2022-02-22 07:09] LABS: Add Manual Diff / Slide Review NO; Basophils Absolute Auto 0 /uL (0-100); Basophils Percent Auto 0.4 % (0-2); Eosinophils Absolute Auto 200 /uL (0-450); Hematocrit 39.5 % (41-53); Hemoglobin 13.2 g/dL (13.5-17.5); Lymphocytes Absolute Auto 900 /uL (1100-4500); Lymphocytes Percent Auto 11.6 % (25-40); Mean Corpuscular HGB Conc 33.4 % (30-36); Mean Corpuscular Hemoglobin 28.8 PG (26-34); Mean Corpuscular Volume 86.3 fL (80-100); Monocytes Absolute Auto 700 /uL (0-900); Monocytes Percent Auto 9.1 % (3-14); Neutrophils Absolute Auto 6200 /uL (1500-7000); Neutrophils Percent Auto 76.9 % (50-75); Platelet Count 102 X10^3/uL (150-400); Red Blood Cell Count 4.57 X10^6/uL (4.5-5.9); Red Cell Distribution Width 13.9 % (11.6-14.8); White Blood Cell Count 8.1 X10^3/uL (4.5-11.0)
[2022-02-22 07:21] LABS: Alanine Aminotransferase 18 IU/L (<50); Albumin 3.5 g/dL (3.5-5.0); Alkaline Phosphatase 68 U/L (38-126); Aspartate Aminotransferase 23 IU/L (17-59); BUN Creatinine Ratio 24.4 (6-22); Bilirubin Total 0.8 mg/dL (0.2-1.3); Blood Urea Nitrogen 21 mg/dL (9-20); Calcium 8.6 mg/dL (8.4-10.2); Carbon Dioxide 22 mmol/L (22-32); Chloride 102 mmol/L (98-107); Estimated Glomerular Filt Rate > 60 mL/min (>60); Globulin 3.5 g/dL (1.7-4.1); Glucose 113 mg/dL (80-110); HEMOLYSIS < 15 (0-50); Magnesium 2.2 mg/dL (1.6-2.3); Sodium 136 mmol/L (137-145)
[2022-02-22 07:22] LABS: Hemoglobin A1C% w Est Avg Glu 7.1 % (4.0-6.0)
--- NOTE | 2022-02-22 08:05 | PM.PN.1 ---
Subjective Subjective Date Patient Seen: 02/22/22 Time Patient Seen: 15:28 Interval history: Doing well and waiting for podiatry consultation. Exam Vital Signs (past 8 hours): - 02/22/22 03:27 02/22/22 01:00 02/22/22 07:35 Temperature 97.1 F L 97.5 F L Pulse Rate 81 90 Respiratory Rate 17 18 Blood Pressure 127/70 121/79 Pulse Oximetry 100 99 100 Oxygen Delivery Method Room Air Oxygen Flow Rate 0 0 Oxygen Delivery Method Room Air Oxygen Flow Rate 0 Narrative Exam Narrative: General:? Patient is well developed and well nourished, in no distress at this time. HEENT:? Normocephalic, atraumatic, extraocular muscles intact, oral pharynx is clear and mucous membranes are moist. Neck: supple and symmetric, trachea is midline, no cervical adenopathy. Negative for JVD Chest:? Normal AP diameter and contour without kyphoscoliosis, no tachypnea, equal chest rise bilaterally. Lungs:? CTA b/l no wheezing rhonchi or rales. Cardio:?RRR no m/r/g. Abdomen: S NT ND. Musculoskeletal:? Muscle strength and tone are equal within normal limits, no deformity. Extremities: No edema or joint effusions. No cyanosis or clubbing. Skin:?lower extremity chronic venous stasis changes bilaterally. R foot, between 2nd and 3rd toes there is a small ulceration, on the ball of his foot there is a deep penetrating wound, wick was in place and extended a few cm deep, no apparent bone visible. there was some mild purulent drainage that was malodorous, with surrounding erythema that extends to the dorsal aspect of his foot and tacks to his midfoot. Neuro:? Alert and orientated x3,? sensation to touch intact in all extremities, no gross deficits noted of cranial nerves. Psych:? Patient has a well-kept appearance, appropriate affect, mental status attitude thought context and judgment are appropriate for age. Objective Labs Result Diagrams: 02/22/22 06:31 02/22/22 06:31 Labs: Laboratory Results - last 24 hr 02/21/22 02/21/22 02/21/22 10:18 10:18 10:18 WBC 14.3 H RBC 5.10 Hgb 14.5 Hct 43.7 MCV 85.6 MCH 28.5 MCHC 33.3 RDW 14.1 Plt Count 137 L Neut % (Auto) 88.3 H Lymph % (Auto) 5.3 L [place] % (Auto) 6.0 Eos % (Auto) 0.1 L Baso % (Auto) 0.3 Neut # (Auto) 07411 H Lymph # (Auto) 800 L [place] # (Auto) 900 Eos # (Auto) 0 Baso # (Auto) 0 ESR PT 15.0 H INR 1.3 APTT 33 Sodium 133 L Potassium 4.1 Chloride 98 Carbon Dioxide 23 BUN 19 Creatinine 0.99 Estimated GFR > 60 BUN/Creatinine Ratio 19.2 Glucose 145 H Hemoglobin A1c Lactate Calcium 9.3 Magnesium Total Bilirubin 1.3 AST 24 ALT 20 Alkaline Phosphatase 80 C-Reactive Protein Total Protein 8.3 H Albumin 4.4 Globulin 3.9 Albumin/Globulin Ratio 1.1 Lipase 26 Procalcitonin 0.21 SARS-CoV-2 (PCR) 02/21/22 02/21/22 02/21/22 10:18 10:18 10:18 WBC RBC Hgb Hct MCV MCH MCHC RDW Plt Count Neut % (Auto) Lymph % (Auto) [place] % (Auto) Eos % (Auto) Baso % (Auto) Neut # (Auto) Lymph # (Auto) [place] # (Auto) Eos # (Auto) Baso # (Auto) ESR 44 H PT INR APTT Sodium Potassium Chloride Carbon Dioxide BUN Creatinine Estimated GFR BUN/Creatinine Ratio Glucose Hemoglobin A1c Lactate 1.3 Calcium Magnesium Total Bilirubin AST ALT Alkaline Phosphatase C-Reactive Protein 8.8 H Total Protein Albumin Globulin Albumin/Globulin Ratio Lipase Procalcitonin SARS-CoV-2 (PCR) 02/21/22 02/22/22 02/22/22 10:24 06:31 06:31 WBC 8.1 RBC 4.57 Hgb 13.2 L Hct 39.5 L MCV 86.3 MCH 28.8 MCHC 33.4 RDW 13.9 Plt Count 102 L Neut % (Auto) 76.9 H Lymph % (Auto) 11.6 L [place] % (Auto) 9.1 Eos % (Auto) 2.0 Baso % (Auto) 0.4 Neut # (Auto) 6200 Lymph # (Auto) 900 L [place] # (Auto) 700 Eos # (Auto) 200 Baso # (Auto) 0 ESR PT INR APTT Sodium 136 L Potassium 4.0 Chloride 102 Carbon Dioxide 22 BUN 21 H Creatinine 0.86 Estimated GFR > 60 BUN/Creatinine Ratio 24.4 H Glucose 113 H Hemoglobin A1c Lactate Calcium 8.6 Magnesium 2.2 Total Bilirubin 0.8 AST 23 ALT 18 Alkaline Phosphatase 68 C-Reactive Protein Total Protein 7.0 Albumin 3.5 Globulin 3.5 Albumin/Globulin Ratio 1.0 Lipase Procalcitonin SARS-CoV-2 (PCR) Negative 02/22/22 06:31 WBC RBC Hgb Hct MCV MCH MCHC RDW Plt Count Neut % (Auto) Lymph % (Auto) [place] % (Auto) Eos % (Auto) Baso % (Auto) Neut # (Auto) Lymph # (Auto) [place] # (Auto) Eos # (Auto) Baso # (Auto) ESR PT INR APTT Sodium Potassium Chloride Carbon Dioxide BUN Creatinine Estimated GFR BUN/Creatinine Ratio Glucose Hemoglobin A1c 7.1 H Lactate Calcium Magnesium Total Bilirubin AST ALT Alkaline Phosphatase C-Reactive Protein Total Protein Albumin Globulin Albumin/Globulin Ratio Lipase Procalcitonin SARS-CoV-2 (PCR) [facility] Medical History Amputation foot, unilat CAD (coronary artery disease) History of amputation of hallux HLD (hyperlipidemia) HTN (hypertension) Osteomyelitis Surgical History H/O knee surgery History of hip surgery Family History Mother Diabetes mellitus Hypertension Father Diabetes mellitus Hypertension Social History household members: spouse Smoking Status: Former smoker alcohol intake: current Assessment & Plan Assessment & Plan narrative: 1. R foot diabetic foot ulceration with possible osteomyelitis, with corresponding R foot cellulitis and possible sepsis with thrombocytopenia and elevated bilirubin. - sent to hospital by wound care Dr. Whaley - MRI negative for osteomyelitis - continue cefepime and vanco given diabetes to cover for pseudomonas and MRSA, wound cultures sent from the ER growing nothing - per podiatry Dr. Kwok will come by to check if needs debridement, but likely plan for po abx for 2 weeks to cover until can see outpatient wound care - erythema on admission extends to midfoot, continue to follow - SOFA score of 2 with thrombocytopenia and elevated bilirubin, antibiotics as discussed above. 2. CAD - continue home asa/plavix 3. DM - hold home oral medications at this time. takes 33U NPH daily. Change to 20 units lantus at bedtime, and sliding scale coverage for now. Adjust as needed. 4. HTN - continue home medications 5. HLD - continue home statin 6. Hyponatremia, mild, unknown chronicity - mild hyponatremia with Na of 133. Continue to follow, currently without symptoms. I have utilized all available immediate resources to obtain, update, or review the patient's current medications. Code: Full, surrogate is patient's spouse DVT: hold pending orthopedic evaluation, can have SCDs Dispo: Home in 1-2 days on po abx. COVID-19 COVID-19 status: Negative Time Spent With Patient Critical Care time: I spent a total of [] minutes of critical care time on this patient's care today; this time is exclusive of procedural time. Quality VTE Deep Vein Thrombosis/Pulmonary Embolism Present on Admission: No
[2022-02-22] MEDS: CLOPIDOGREL 75 MG TABLET PO (09:04)
[2022-02-22] MEDS: FUROSEMIDE 40 MG TABLET PO (09:04)
[2022-02-22] MEDS: AMLODIPINE 5 MG TABLET PO (09:04)
[2022-02-22] MEDS: ISOSORBIDE MONONITRATE ER 30 MG TABLET PO (09:04)
[2022-02-22] MEDS: ATORVASTATIN 20 MG TABLET 80 MG PO (09:04)
[2022-02-22] MEDS: lisinopriL 5 MG TABLET PO (09:13)
[2022-02-22] MEDS: CEFEPIME 2 GM in SODIUM CHLORIDE 0.9% 100 ML IV ×2 (12:10→23:01)
--- NOTE | 2022-02-22 12:30 | CM.DANOTE ---
Patient is a 66 yo male who was admitted on 02/21/22 for Foot infection. Pt has [facility] for insurance and his PCP is Dr. Fili Francisco. EMR was reviewed. Per MD, pt with hx of osteomyelitis and diabetic foot wounds at baseline and needed residential IV-Abx in the past after partial toe amputation. Market Survey Representative to Consult today towards determining POC. SW met bedside with pt and explained role and pt confirms he was just getting established with Wound Care and saw Market Survey Representative Dr. Kwok 2 weeks ago and now admitted for significant foot infection. Pt confirms that he lives in [place] with his spouse and both are retired and pt is independent at baseline, drives, has walking canes to assist with mobility. Pt states he moved from [place] in November and [place] is where he has had IV-Abx through a home infusion company and had his partial amputation. Pt denies any hx of SNF and states preference would be home with spouse assist and home infusion if abx needed at d/c. Pt would be agreeable with HH if needed. SW made initial [facility] referral and request to follow while awaiting Market Survey Representative recommendations and needs. Plan: SW to follow closely for Market Survey Representative recommendations towards determining d/c planning needs, if pt will be weight bearing, and r/o IV-Abx at d/c. NICA Moreno Discharge Planning/Care Management CM Discharge Assessment Start: 02/22/22 12:20 Freq: Status: Active Protocol: Document 02/22/22 12:21 BF (Rec: 02/22/22 12:30 BF [id number]) Discharge Planning Assessment Assigned Mandrel Cleaner NICA Castañeda DPOA/Assigned Designee Name spouse Advance Directives? No Advance Directives on File No History Provided By Patient,Medical Record Has Patient been admitted in last 30 No days? Prior Living Arrangements House Household Members spouse Type of transporation used prior to Drives own vehicle admit Independent with ADL's Yes Is patient alert and oriented? Yes Caregiver for Another No DME Already Rented / Owned Cane,Crutches Patient/Family Preference Home with Home Health Comment Pending Market Survey Representative recommendations and possible need for oysterman IV-Abx Barriers to Discharge Yes Comment r/o IV-Abx Discharge Plan Home with Home Health [facility] IV Therapy Transportation Arrangement spouse can provide transport if safe for home Additional Comment Pending Podiatry consult and possible IV-Abx at d/c Whiteboard Updated in Patient Room with Yes name and ext. # of Mandrel Cleaner Review Status In Process Please Provide Date Initial DC 02/22/22 Assessment Was Performed Next Review Type Continued Stay Review
[2022-02-22] MEDS: INSULIN LISPRO 100 UNIT/ML 3ML VIAL SUBCUT (18:02)
--- NOTE | 2022-02-22 19:22 | PM.CN ---
History of Present Illness Consult details Date Patient Seen: 02/22/22 Time Patient Seen: 19:22 Chief complaint: right foot infection sent by Wound Care Reason for consult: Right foot ulceration worsening, cellulitis. Question of possible surgery. Requesting provider: Juni Cooper Narrative: 66 yo DM male with peripheral neuropathy seen at bedside on consultation from medicine with right foot ulceration. He saw me as an outpatient the last week of January and began seeing Dr. Garcia in wound care. He noticed Monday he began feeling general malaise and thought it might be COVID, but then his remarked his foot smelled and he realized there was concern of infection. He reported to Dr. Garcia on Monday and was sent to the ER upon which he was felt to be showing signs of infection to the point of needing hospitalization. Since that admission yesterday he reports feeling improved, and has noticed the swelling in the toes going down. He is getting iv antibiotics (vancomycin and cephalexin) and denies c/f/n/v. He is in no pain due to neuropathic status. Meds Home Medications and Allergies Home Medications Medication Instructions Recorded Confirmed Type amlodipine 5 mg tablet 5 mg PO DAILY 02/21/22 02/21/22 History atorvastatin 80 mg tablet 80 mg PO DAILY 02/21/22 02/21/22 History clopidogrel 75 mg tablet 75 mg PO DAILY 02/21/22 02/21/22 History empagliflozin 25 mg tablet 25 mg PO DAILY 02/21/22 02/21/22 History (Jardiance) furosemide 40 mg tablet 40 mg PO DAILY 02/21/22 02/21/22 History insulin NPH isoph U-100 human 100 33 unit SUBCUT DAILY 02/21/22 02/21/22 History unit/mL subcutaneous suspension (Humulin N NPH U-100 Insulin (isophane susp)) isosorbide mononitrate 30 mg 30 mg PO DAILY 02/21/22 02/21/22 History tablet,extended release 24 hr lisinopril 5 mg tablet 5 mg PO DAILY 02/21/22 02/21/22 History metformin 1,000 mg tablet 1,000 mg PO BID 02/21/22 02/21/22 History semaglutide 1 mg/dose (2 mg/1.5 1 mg SUBCUT QWEEK 02/21/22 02/21/22 History mL) subcutaneous pen injector (Ozempic) Allergies Allergy/AdvReac Type Severity Reaction Status Date / Time No Known Drug Allergies Allergy Verified 02/21/22 10:15 Review of Systems Constitutional Constitutional: Reports as per HPI Eyes Eyes: Reports system reviewed and no additional complaints, except as documented Cardiovascular Cardiovascular: Reports system reviewed and no additional complaints, except as documented Respiratory Respiratory: Reports system reviewed and no additional complaints, except as documented Exam Vital Signs (past 8 hours): - 02/22/22 13:00 02/22/22 16:30 02/22/22 17:00 Temperature 97.5 F L Pulse Rate 93 H Respiratory Rate 18 Blood Pressure 111/68 Pulse Oximetry 97 100 97 Oxygen Delivery Method Room Air Room Air Oxygen Flow Rate 0 Oxygen Delivery Method Room Air Oxygen Flow Rate 0 Narrative Exam Narrative: Seen at bedside, alert and oriented in no acute distress. Awake and conversational. Const General: cooperative Eyes General: appearance normal, both eyes and all related structures Resp Effort & Inspection: normal respiratory effort and able to speak in complete sentences Cardio Pulses: dorsalis pedis present on the right Extrem Right lower extremity: normal capillary refill and foot Details: other Other: Bandaging removed from right foot showing condensed packing to the plantar wound, no malodor. It is wet and serous, no purulence. Wound is plantar second metatarsal head area and wound extends to the lateral second toe. It also probes just proximal to the second metatarsal head but no skin opening is seen here. Does not probe to bone, and upon pressure to the area it drains some serosanguinous fluid but no purulence. No crepitus on pressure, but ROM to the second toe has a little click, c/w chronic contracture. Absence of tip of hallux from historical amputation. Toes moderately tight in contracture at metatarsophalangeal joints. Erythema mild and local to second and third toes extending just proximal to sulcus dorsally. Dorsiflexion foot on ankle with knee straight <10 degrees beyond 90. Objective Imaging MRI Right foot:: My impression: Agree with radiologist impression. No drainable abscess. Post surgical changes to the bones, no acute bone reaction or marrow edema or erosive changes in region of ulceration. Radiologist's impression: 02/21/22: Full-thickness ulceration involving plantar aspect of forefoot at the level of MTP joint/proximal phalanges with extensive cellulitis deep to the site of ulceration, surrounding 2nd, 3rd and 4th MTP joints and proximal phalangeal shaft and along dorsal aspect of midfoot and forefoot. No discrete drainable abscess collection is seen. 2. Postsurgical changes in 1st through 4th toes as described above. No marrow edema. No bony erosive changes. No MR evidence of osteomyelitis. No acute fracture or dislocation. 3. Mild myositis involving plantar foot muscles. No intramuscular fluid collection Right foot x-ray: My impression: 02/21/22: No acute cortical disruptions. No gas in tissues. Plantar skin ulceration noted. Hardware in place to the toes 2,3,4 and metatarsal heads 2,3 c/w post surgical changes. Distal hallux amputation. 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 Labs Result Diagrams: 02/22/22 06:31 02/22/22 06:31 Labs: Laboratory Results - last 24 hr 02/22/22 02/22/22 02/22/22 06:31 06:31 06:31 WBC 8.1 RBC 4.57 Hgb 13.2 L Hct 39.5 L MCV 86.3 MCH 28.8 MCHC 33.4 RDW 13.9 Plt Count 102 L Neut % (Auto) 76.9 H Lymph % (Auto) 11.6 L [place] % (Auto) 9.1 Eos % (Auto) 2.0 Baso % (Auto) 0.4 Neut # (Auto) 6200 Lymph # (Auto) 900 L [place] # (Auto) 700 Eos # (Auto) 200 Baso # (Auto) 0 Sodium 136 L Potassium 4.0 Chloride 102 Carbon Dioxide 22 BUN 21 H Creatinine 0.86 Estimated GFR > 60 BUN/Creatinine Ratio 24.4 H Glucose 113 H Hemoglobin A1c 7.1 H Calcium 8.6 Magnesium 2.2 Total Bilirubin 0.8 AST 23 ALT 18 Alkaline Phosphatase 68 Total Protein 7.0 Albumin 3.5 Globulin 3.5 Albumin/Globulin Ratio 1.0 02/21/22: Foot swab: Gram Stain Final 02/21/22-1452 No Organism Seen No organisms seen White blood cells No WBC seen Aerobic Culture for wounds Preliminary 02/22/22 No growth. Anaerobic Culture Final 02/21/22 Test not performed [facility] Medical History Amputation foot, unilat CAD (coronary artery disease) History of amputation of hallux HLD (hyperlipidemia) HTN (hypertension) Osteomyelitis Surgical History H/O knee surgery History of hip surgery Family History Mother Diabetes mellitus Hypertension Father Diabetes mellitus Hypertension Social History marital status: household members: spouse other: recently moved from [facility] Tobacco & Substance Use Smoking Status: Former smoker alcohol intake: current Assessment & Plan Assessment and plan (1) Diabetic ulcer of foot associated with diabetes mellitus due to underlying condition, with fat layer exposed: Status: Acute (2) Diabetes mellitus with neuropathy: Status: Acute Assessment & Plan narrative: 1. R foot plantar plantar second/third metatarsal heads and third interspace diabetic foot ulceration with corresponding R foot cellulitis. - plain film foot x-rays negative for gas in tissues and MRI negative for osteomyelitis or drainable abscess - appears to be responding to iv antibiotics vancomycin and cefepime given diabetes to cover for pseudomonas and MRSA, wound cultures from the ER show no organisms on gram stain and no growth on culture. Will take additional culture if appears to be trending negatively on wound. - Appreciate Dr. Weller initial review. - Wound packing is removed today at bedside and normal saline irrigation was performed through the wound. Dried well, and does not probe to bone. With extension of the plantar wound with an opening to the lateral second toe, do not see indication today for surgical debridement, but will check again tomorrow evening and dressing is repacked through the plantar to interspace outlet with iodonated NuGauze. - Dressing change timing will be based on amount of drainage noted. At this moment he has an appt with Dr. Garcia for Monday, February 28, but as we see his course, we may plan for him to see Dr. Garcia earlier upond discharge. I will check tomorrow and see how this is trending with his wound. - As he continues to improve, and without growth on cultures or gram stain organisms, will likely be able to d/c on po abx for 2 weeks to cover until can be under management again with outpatient wound care; will watch for this further tomorrow on examination. - With the plantar pressures he should be touchdown weight bearing only as needed. Otherwise mostly NWB to the right foot. Request physical therapy consult if this is not yet requested for NWB status. - Ultimately from a declarative standpoint, surgical options as an outpatient once the wounds are more fully healed may involve gastrocnemius recession to reduce plantar pressures, and/or lindsey met head resection if diabetic shoes/orthoses are not managing to control the forefoot pressures and bringing persistent ulcerative risk. 2. DM - Medicine managing. Appreciate consultation request, will round on him to check foot and dressing again tomorrow evening. COVID-19 COVID-19 status: Negative Time Spent With Patient Critical Care time: I spent a total of [] minutes of critical care time on this patient's care today; this time is exclusive of procedural time.
[2022-02-22] MEDS: INSULIN GLARGINE 100 UNIT/ML 3ML PEN 20 UNIT SUBCUT (20:33)
[2022-02-22] MEDS: TEMAZEPAM 15 MG CAPSULE PO (20:42)
[2022-02-23] VITALS (9 sets, daily range): BP systolic 110–122; BP diastolic 60–69; PULSE 68–85; RESP 16–18; TEMP 36.4–36.6; O2SAT 97–100
[2022-02-23] MEDS: VANCOMYCIN 1,250 MG/250 ML PIGGYBACK 250 MG IV ×2 (01:58→14:00)
[2022-02-23 05:48] LABS: Add Manual Diff / Slide Review NO; Basophils Absolute Auto 0 /uL (0-100); Basophils Percent Auto 0.5 % (0-2); Eosinophils Absolute Auto 200 /uL (0-450); Eosinophils Percent Auto 2.6 % (2-4); Hematocrit 37.6 % (41-53); Hemoglobin 12.6 g/dL (13.5-17.5); Lymphocytes Absolute Auto 1100 /uL (1100-4500); Lymphocytes Percent Auto 18.6 % (25-40); Mean Corpuscular HGB Conc 33.4 % (30-36); Mean Corpuscular Hemoglobin 28.6 PG (26-34); Mean Corpuscular Volume 85.5 fL (80-100); Monocytes Absolute Auto 700 /uL (0-900); Monocytes Percent Auto 11.5 % (3-14); Neutrophils Absolute Auto 4000 /uL (1500-7000); Neutrophils Percent Auto 66.8 % (50-75); Platelet Count 113 X10^3/uL (150-400)
[2022-02-23 05:57] LABS: Alanine Aminotransferase 25 IU/L (<50); Albumin 3.3 g/dL (3.5-5.0); Alkaline Phosphatase 65 U/L (38-126); Aspartate Aminotransferase 26 IU/L (17-59); Bilirubin Total 0.7 mg/dL (0.2-1.3); Blood Urea Nitrogen 18 mg/dL (9-20); Calcium 8.4 mg/dL (8.4-10.2); Carbon Dioxide 24 mmol/L (22-32); Chloride 103 mmol/L (98-107); Estimated Glomerular Filt Rate > 60 mL/min (>60); Globulin 3.4 g/dL (1.7-4.1); Glucose 117 mg/dL (80-110); HEMOLYSIS < 15 (0-50); Magnesium 2.1 mg/dL (1.6-2.3); Potassium 3.9 mmol/L (3.4-5.1); Sodium 134 mmol/L (137-145); Total Protein 6.7 g/dL (6.3-8.2)
--- NOTE | 2022-02-23 08:30 | PM.PN.1 ---
Subjective Subjective Date Patient Seen: 02/23/22 Time Patient Seen: 14:00 Interval history: Patient met with Dr. Kwok last night who changed the iodoform gauze and evaluated the wound. Plan is for her to return today to reassess. Exam Vital Signs (past 8 hours): - 02/23/22 00:49 02/23/22 04:48 02/23/22 08:17 Temperature 97.6 F 97.6 F 97.6 F Pulse Rate 68 73 84 Respiratory Rate 18 18 16 Blood Pressure 110/60 120/64 110/69 Pulse Oximetry 97 99 100 Oxygen Flow Rate 0 0 0 Oxygen Delivery Method Room Air Oxygen Flow Rate 0 Narrative Exam Narrative: General:? Patient is well developed and well nourished, in no distress at this time. HEENT:? Normocephalic, atraumatic, extraocular muscles intact, oral pharynx is clear and mucous membranes are moist. Neck: supple and symmetric, trachea is midline, no cervical adenopathy. Negative for JVD Chest:? Normal AP diameter and contour without kyphoscoliosis, no tachypnea, equal chest rise bilaterally. Lungs:? CTA b/l no wheezing rhonchi or rales. Cardio:?RRR no m/r/g. Abdomen: S NT ND. Musculoskeletal:? Muscle strength and tone are equal within normal limits, no deformity. Extremities: No edema or joint effusions. No cyanosis or clubbing. Skin:?lower extremity chronic venous stasis changes bilaterally. R foot, between 2nd and 3rd toes there is a small ulceration, on the ball of his foot there is a deep penetrating wound, wick was in place and extended a few cm deep, no apparent bone visible. there was some mild purulent drainage that was malodorous, with surrounding erythema that extends to the dorsal aspect of his foot and tacks to his midfoot. Neuro:? Alert and orientated x3,? sensation to touch intact in all extremities, no gross deficits noted of cranial nerves. Psych:? Patient has a well-kept appearance, appropriate affect, mental status attitude thought context and judgment are appropriate for age. Objective Labs Result Diagrams: 02/23/22 05:00 02/23/22 05:00 Labs: Laboratory Results - last 24 hr 02/23/22 02/23/22 05:00 05:00 WBC 6.0 RBC 4.40 L Hgb 12.6 L Hct 37.6 L MCV 85.5 MCH 28.6 MCHC 33.4 RDW 14.0 Plt Count 113 L Neut % (Auto) 66.8 Lymph % (Auto) 18.6 L [place] % (Auto) 11.5 Eos % (Auto) 2.6 Baso % (Auto) 0.5 Neut # (Auto) 4000 Lymph # (Auto) 1100 [place] # (Auto) 700 Eos # (Auto) 200 Baso # (Auto) 0 Sodium 134 L Potassium 3.9 Chloride 103 Carbon Dioxide 24 BUN 18 Creatinine 0.82 Estimated GFR > 60 BUN/Creatinine Ratio 22.0 Glucose 117 H Calcium 8.4 Magnesium 2.1 Total Bilirubin 0.7 AST 26 ALT 25 Alkaline Phosphatase 65 Total Protein 6.7 Albumin 3.3 L Globulin 3.4 Albumin/Globulin Ratio 1.0 PFSH Medical History Amputation foot, unilat CAD (coronary artery disease) History of amputation of hallux HLD (hyperlipidemia) HTN (hypertension) Osteomyelitis Surgical History H/O knee surgery History of hip surgery Family History Mother Diabetes mellitus Hypertension Father Diabetes mellitus Hypertension Social History marital status: household members: spouse other: recently moved from [facility] Smoking Status: Former smoker alcohol intake: current Assessment & Plan Assessment & Plan narrative: 1. R foot diabetic foot ulceration with possible osteomyelitis, with corresponding R foot cellulitis and possible sepsis with thrombocytopenia and elevated bilirubin. - sent to hospital by wound care Dr. Whaley - MRI negative for osteomyelitis - continue cefepime and vanco given diabetes to cover for pseudomonas and MRSA, wound cultures sent from the ER growing nothing, repeat wound culture on 02/22 with very early growth - per podiatry Dr. Kwok no need for debridement, she changed the dressing and iodoform gauze wick - plan to switch to po abx for 2 weeks then patient will f/u with Dr. Garcia in clinic 2. CAD - continue home asa/plavix 3. DM - hold home oral medications at this time. takes 33U NPH daily. Change to 20 units lantus at bedtime, and sliding scale coverage for now. Adjust as needed. 4. HTN - continue home medications 5. HLD - continue home statin 6. Hyponatremia, mild, unknown chronicity - mild hyponatremia with Na of 133. Continue to follow, currently without symptoms. - improved to 134 Code: Full, surrogate is patient's spouse DVT: hold pending orthopedic evaluation, can have SCDs Dispo: Home in 1-2 days on po abx. COVID-19 COVID-19 status: Negative Time Spent With Patient Critical Care time: I spent a total of [] minutes of critical care time on this patient's care today; this time is exclusive of procedural time. Quality VTE Deep Vein Thrombosis/Pulmonary Embolism Present on Admission: No
[2022-02-23] MEDS: CLOPIDOGREL 75 MG TABLET PO (08:39)
[2022-02-23] MEDS: ISOSORBIDE MONONITRATE ER 30 MG TABLET PO (08:40)
[2022-02-23] MEDS: ATORVASTATIN 20 MG TABLET 80 MG PO (08:40)
[2022-02-23] MEDS: AMLODIPINE 5 MG TABLET PO (08:40)
--- NOTE | 2022-02-23 10:14 | PT.IIE ---
Current Diagnoses Sepsis, unspecified organism (02/21/22) Diabetes mellitus due to underlying condition with foot ulcer (02/21/22) Type 2 diabetes mellitus with diabetic neuropathy, unspecified (02/21/22) Non-pressure chronic ulcer of other part of unspecified foot with fat layer exposed (02/21/22) Surgical History (Last Reviewed 02/21/22 @ 16:43 by Laci Weller MD) H/O knee surgery History of hip surgery Medical History (Last Reviewed 02/21/22 @ 16:43 by Laci Weller MD) Amputation foot, unilat CAD (coronary artery disease) History of amputation of hallux HLD (hyperlipidemia) HTN (hypertension) Osteomyelitis Physical Therapy Inpatient Evaluation/Re-Eval M1 PT/OT-IP Prior Functional Status Start: 02/23/22 10:00 Freq: NEEDED Status: Active Protocol: Document 02/23/22 10:01 [facility] (Rec: 02/23/22 10:14 [facility] [id number]) Medical Review Prior Functional Status Medical History Reviewed Yes Diet/Fluid Consistency Regular Mobility and Gait pt has been ambulating on his heel prior to this hospitalization, he does have a fww and walking sticks for longer durations Activities of Daily Living and IADL's pt's does cooking and pt is able to perform most other ADL's Social History Household Members spouse Living Arrangements House Number of Floors (Floors) Two Floors Number of Stairs To Enter/Railing? 2 steps into house Home Equipment Front Wheel Walker Employment Status Retired Additional Social History Comment pt lives in [place] with his has a walker and walking sticks at home, he reports he has gotten used to walking on his heel on his right side M2 PT-IP Current Condition Start: 02/23/22 10:00 Freq: NEEDED Status: Active Protocol: Document 02/23/22 10:01 [facility] (Rec: 02/23/22 10:14 [facility] [id number]) Physical Therapy Current Condition Current Condition Evaluation Date 02/23/22 Treatment Diagnosis Right foot infection, diabetic ulcer of the foot, possible osteomylitis M3 PT-IP Subjective Start: 02/23/22 10:00 Freq: NEEDED Status: Active Protocol: Document 02/23/22 10:01 [facility] (Rec: 02/23/22 10:14 [facility] [id number]) Subjective Physical Therapy Visit Type Type Initial Evaluation Visit Start Time 09:45 Visit Stop Time 10:05 Total Visit Minutes 20 Physical Therapy Visit Comments Patient Comments pt is sitting up in bed, he reports he has been up to the bathroom independently this am without assistive device, pt denies pain due to neuropathy Patient Goals pt would like to DC home with his , get healed up and then increase his activity level Therapy Pain Assessment Location right foot Scale Used no pain due to neuropathy M4 PT-IP Mobility and Gait Start: 02/23/22 10:00 Freq: NEEDED Status: Active Protocol: Document 02/23/22 10:01 [facility] (Rec: 02/23/22 10:14 [facility] [id number]) PT-Bed Mobility Assessment Rolling Type of Rolling Bilateral Level of Assist Independent Supine to Sit Supine to Sit Independent Sit to Supine Sit to Supine Independent Scooting Scooting to Edge of Bed Independent Scooting Up and Down in Bed Independent PT-Transfer Assessment Sit to and From Stand Sit to and from Stand Independent Equipment Transfer Assistive Device None Orthotic/Prosthetic Devices or Brace: No Transfers Transfer Destination Toilet Transfer Technique pt can ambulate to the chair Transfer Ability Level of Assist Independent Comments Mobility Comments pt demonstrates Ind mobility, he ambulates on his Right heel with toes up Gait Assessment Gait Gait Assistance Required: Independent Distance (Feet) 8 Assistive Devices Assistive Device None Gait Deviations General Gait Pattern Antalgic Factors Limiting Gait Function Factors Limiting Gait Function Decreased Sensation,Pain Comments Gait Comments pt ambulates on his right heel , he is aware of no sensation in his feet, he uses a fww for home for longer distances PT-Balance Assessment Sitting Balance and Reactions Static Sitting Balance Ability Good Dynamic Sitting Balance Ability Good Standing Balance and Reactions Static Standing Balance Ability Normal Dynamic Standing Balance Ability Normal M5 PT-IP Objective Assessments Start: 02/23/22 10:00 Freq: NEEDED Status: Active Protocol: Document 02/23/22 10:01 [facility] (Rec: 02/23/22 10:14 [facility] [id number]) Orientation Orientation/Cognition Level of Alertness Alert Gross Range of Motion Upper Extremity ROM Assessment Within Functional Limits Lower Extremity ROM Assessment Within Functional Limits Strength Upper Extremity Strength Assessment Within Functional Limits Lower Extremity Strength Assessment Within Functional Limits Coordination Assessment Gross Coordination Gross Coordination WNL Sensation Assessment Sensation Light Touch Absent Comments Sensation Comments diabetic neuropathy in B feet Muscle Tone Muscle Tone WNL Yes M7 PT-IP Assessment and Plan Start: 02/23/22 10:00 Freq: NEEDED Status: Active Protocol: Document 02/23/22 10:01 [facility] (Rec: 02/23/22 10:14 [facility] [id number]) PT Summary Assessment and Plan Potential Rehabilitation Potential Excellent Status of Condition at Evaluation Stable Summary Impairments Strength,Balance,Gait,Activity Tolerance Assessment Summary Pt is a 66 year old male with PMH of CAD, HTN, HLD, DM2, osteomyelitis of right foot and chronic diabetic foot wounds. Sidney lives at home with his in [place]. He reports he has been walking at home on the heel of his right foot and uses a fww or his walking sticks for longer distances. Upon exam today he was sitting up in bed. He reported that he had already walked to the bathroom independently this am and denies pain due to neuropathy. He demonstrated Ind bed mobility and transfers and is able to walk in room Ind short distances. His walker is ready for him for home and his will be picking him up to bring him home when medically stable. Due to his high level of function he will not require PT in hospital. I did advise PT for gait training once healed as he would like to return to further distance walking and exercise. Frequency of Treatment Frequency Of Treatment Discharge
[2022-02-23] MEDS: CEFEPIME 2 GM in SODIUM CHLORIDE 0.9% 100 ML IV ×2 (10:18→23:13)
--- NOTE | 2022-02-23 10:42 | CM.DPC ---
DCP Cont: Per Artifacts Conservator Consult yesterday evening, no current need for I&D and MRI does not show osteomyelitis. Artifacts Conservator anticipates pt should be able to d/c on oral abx for 2 weeks with close outpt f/u with Wound Clinic and herself. Artifacts Conservator to be bedside again this evening and likely pt d/c home tomorrow 02/24/22 if medically stable. PT was ordered as pt mostly non-weight bearing but can bear some weight as tolerated. PT completed bedside assess and recommend home with spouse assist. Plan: SW to follow closely for possible d/c home tomorrow Thurs if medically stable on oral abx and outpt wound clinic follow up. NICA Moreno
[2022-02-23] MEDS: VANCOMYCIN TROUGH 1 REQUEST MISC (14:00)
[2022-02-23 17:51] LABS: Vancomycin Peak 23.6 ug/mL (20-40)
[2022-02-23] MEDS: VANCOMYCIN PEAK 1 REQUEST MISC (18:04)
[2022-02-23] MEDS: INSULIN LISPRO 100 UNIT/ML 3ML VIAL SUBCUT (18:04)
--- NOTE | 2022-02-23 18:45 | PM.PN.1 ---
Subjective Subjective Date Patient Seen: 02/23/22 Time Patient Seen: 18:46 Interval history: 66 yo diabetic male seen at bedside on HOD#3 with right foot wound. He feels no pain, feels good, and has noted impression of a little more diffuse redness to foot on the side but less swelling to the toes. The dressing has not been changed and he saw physical therapy for a review of NWB status. Denies f/c/n/v and is able to eat/void. Exam Vital Signs (past 8 hours): - 02/23/22 13:00 02/23/22 13:24 02/23/22 17:38 Temperature 97.9 F Pulse Rate 85 Respiratory Rate 16 Blood Pressure 111/68 Pulse Oximetry 97 100 97 Oxygen Delivery Method Nasal Cannula Room Air Oxygen Flow Rate 0 0 0 Oxygen Delivery Method Room Air Oxygen Flow Rate 0 Const Orientation: alert, awake and oriented x3 Resp Effort & Inspection: normal respiratory effort Cardio Pulses: posterior tibial pulses present on the right and dorsalis pedis present on the right Extrem Right lower extremity: normal capillary refill and foot Details: other Other: Bandaging removed from right foot showing condensed packing to the plantar wound, no malodor. It is still wet and serosanguinous drainage, no purulence. Wound plantar second metatarsal head area extends to the lateral second toe. It also probes just proximal to the second metatarsal head but no skin opening is seen here, although there is thin skin at sulcus dorsally and some redness and minor slough. Does not probe to bone, and upon pressure to the area not draining today. No crepitus on pressure. Erythema dorsal foot and somewhat lateral foot but not streaking. Not as warm as yesterday on palpation. Pitting edema to the dorsolateral foot. Erythema reduces by about 1/2-2/3 when foot elevated. Wet in the interspaces #2, 3. Dorsiflexion foot on ankle with knee straight <10 degrees beyond 90. Objective Labs Result Diagrams: 02/23/22 05:00 02/23/22 05:00 Labs: Laboratory Results - last 24 hr 02/23/22 02/23/22 02/23/22 05:00 05:00 13:34 WBC 6.0 RBC 4.40 L Hgb 12.6 L Hct 37.6 L MCV 85.5 MCH 28.6 MCHC 33.4 RDW 14.0 Plt Count 113 L Neut % (Auto) 66.8 Lymph % (Auto) 18.6 L [place] % (Auto) 11.5 Eos % (Auto) 2.6 Baso % (Auto) 0.5 Neut # (Auto) 4000 Lymph # (Auto) 1100 [place] # (Auto) 700 Eos # (Auto) 200 Baso # (Auto) 0 Sodium 134 L Potassium 3.9 Chloride 103 Carbon Dioxide 24 BUN 18 Creatinine 0.82 Estimated GFR > 60 BUN/Creatinine Ratio 22.0 Glucose 117 H Calcium 8.4 Magnesium 2.1 Total Bilirubin 0.7 AST 26 ALT 25 Alkaline Phosphatase 65 Total Protein 6.7 Albumin 3.3 L Globulin 3.4 Albumin/Globulin Ratio 1.0 Vancomycin Peak Vancomycin Trough 12.0 02/23/22 16:43 WBC RBC Hgb Hct MCV MCH MCHC RDW Plt Count Neut % (Auto) Lymph % (Auto) [place] % (Auto) Eos % (Auto) Baso % (Auto) Neut # (Auto) Lymph # (Auto) [place] # (Auto) Eos # (Auto) Baso # (Auto) Sodium Potassium Chloride Carbon Dioxide BUN Creatinine Estimated GFR BUN/Creatinine Ratio Glucose Calcium Magnesium Total Bilirubin AST ALT Alkaline Phosphatase Total Protein Albumin Globulin Albumin/Globulin Ratio Vancomycin Peak 23.6 Vancomycin Trough Foot:Gram Stain Final 02/21/22 No Organism Seen No organisms seen White blood cells No WBC seen Aerobic Culture for wounds Preliminary 02/23/22-1237 Very Early Growth Very Early Growth: Culture too young for work-up reincubated Anaerobic Culture Final 02/21/22 Test not performed [facility] Medical History Amputation foot, unilat CAD (coronary artery disease) History of amputation of hallux HLD (hyperlipidemia) HTN (hypertension) Osteomyelitis Surgical History H/O knee surgery History of hip surgery Family History Mother Diabetes mellitus Hypertension Father Diabetes mellitus Hypertension Social History marital status: household members: spouse other: recently moved from [facility] Smoking Status: Former smoker alcohol intake: current Assessment & Plan Assessment and plan (1) Diabetic ulcer of foot associated with diabetes mellitus due to underlying condition, with fat layer exposed: Status: Acute (2) Diabetes mellitus with neuropathy: Status: Acute Assessment & Plan narrative: 1. R foot plantar plantar second/third metatarsal heads and third interspace diabetic foot ulceration with corresponding R foot cellulitis. - appears to be slightly improved from last night but not as dramatic as I would have hoped with the antibiotics being delivered. Currently delivering iv antibiotics vancomycin and cefepime given diabetes to cover for pseudomonas and MRSA, but as of yet, wound cultures from Dr. Garcia show no organisms on gram stain and no growth on culture. I irrigated the wound and decided due to the less substantial recovery noted today, to take updated aerobic and anaerobic cultures. - Wound packing is removed today at bedside and normal saline irrigation was performed through the wound. Dried well, and does not probe to bone. With extension of the plantar wound with an opening to the lateral second toe, I still don't perceive surgical debridement as his WBC is normal range, there is no abscess on mri, and no purulence. But with the redness settling laterally and not fully going away on elevation, I am still suspicious. Given the combination of these things and the risk/benefit of more extensive opening, I'd like to give him another opportunity to show more responsiveness to the antibiotic duo and will check again tomorrow evening. After the cultures are taken, the dressing is gently packed through the plantar to interspace outlet with iodonated NuGauze. - At this moment he has an appt with Dr. Garcia for February 28, but as we see his course, we may plan for him to see Dr. Garcia earlier upon discharge. He asked about him being able to see him while inpatient and I can reach out to him to see his thoughts on this. - Yesterday I thought we may be able to d/c to home very soon, but today was less than I expected in terms of advancements. I don't see a need to switch his abx since we don't have a culture, and his WBC responded well immediately. I will need to see his trend tomorrow and if surgery not needed, i may rethink the option of iv abx at home instead of orals. Update to follow. - Continue nwb right foot. Appreciate physician assistant surgery consult. - Ultimately from a declarative standpoint, surgical options as an outpatient once the wounds are more fully healed may involve gastrocnemius recession to reduce plantar pressures, and/or lindsey met head resection if diabetic shoes/orthoses are not managing to control the forefoot pressures and bringing persistent ulcerative risk. 2. DM - Medicine managing. Appreciate consultation request, will round on him to check foot and dressing again tomorrow evening. Time Spent With Patient Critical Care time: I spent a total of [] minutes of critical care time on this patient's care today; this time is exclusive of procedural time. Quality VTE Deep Vein Thrombosis/Pulmonary Embolism Present on Admission: No
[2022-02-23] MEDS: metroNIDAZOLE 500 MG TABLET PO (20:23)
[2022-02-23] MEDS: INSULIN GLARGINE 100 UNIT/ML 3ML PEN 20 UNIT SUBCUT (21:14)
[2022-02-24] VITALS (12 sets, daily range): BP systolic 110–140; BP diastolic 55–77; PULSE 53–83; RESP 14–18; TEMP 36–36.9; O2SAT 95–100
[2022-02-24] MEDS: VANCOMYCIN 1,500 MG/300 ML PIGGYBACK 200 MG IV ×2 (01:54→14:27)
[2022-02-24 06:17] LABS: Add Manual Diff / Slide Review NO; Basophils Absolute Auto 0 /uL (0-100); Basophils Percent Auto 0.7 % (0-2); Eosinophils Absolute Auto 200 /uL (0-450); Eosinophils Percent Auto 2.9 % (2-4); Hematocrit 36.5 % (41-53); Hemoglobin 12.1 g/dL (13.5-17.5); Lymphocytes Absolute Auto 1000 /uL (1100-4500); Lymphocytes Percent Auto 18.9 % (25-40); Mean Corpuscular HGB Conc 33.2 % (30-36); Mean Corpuscular Hemoglobin 28.6 PG (26-34); Mean Corpuscular Volume 86.3 fL (80-100); Monocytes Absolute Auto 700 /uL (0-900); Monocytes Percent Auto 12.2 % (3-14); Neutrophils Absolute Auto 3600 /uL (1500-7000); Neutrophils Percent Auto 65.3 % (50-75); Platelet Count 182 X10^3/uL (150-400); Red Blood Cell Count 4.23 X10^6/uL (4.5-5.9); White Blood Cell Count 5.5 X10^3/uL (4.5-11.0)
[2022-02-24 06:32] LABS: Alanine Aminotransferase 28 IU/L (<50); Albumin 3.4 g/dL (3.5-5.0); Alkaline Phosphatase 65 U/L (38-126); Aspartate Aminotransferase 26 IU/L (17-59); BUN Creatinine Ratio 19.2 (6-22); Bilirubin Total 0.5 mg/dL (0.2-1.3); Blood Urea Nitrogen 15 mg/dL (9-20); Calcium 8.5 mg/dL (8.4-10.2); Carbon Dioxide 26 mmol/L (22-32); Chloride 105 mmol/L (98-107); Estimated Glomerular Filt Rate > 60 mL/min (>60); Globulin 3.4 g/dL (1.7-4.1); Glucose 96 mg/dL (80-110); HEMOLYSIS < 15 (0-50); Potassium 4.1 mmol/L (3.4-5.1); Sodium 138 mmol/L (137-145); Total Protein 6.8 g/dL (6.3-8.2)
--- NOTE | 2022-02-24 08:08 | P.PN_ITS ---
Subjective Subjective Date Patient Seen: 02/24/22 Time Patient Seen: 11:00 Interval history: Wants a shower today. Foot feels fine otherwise. Dr. Kwok came by last night and stated it looked ok but she wants to watch it again for a day. Exam Vital Signs (past 8 hours): - 02/24/22 03:15 02/24/22 05:00 Temperature 96.8 F L Pulse Rate 60 Respiratory Rate 17 Blood Pressure 123/73 Pulse Oximetry 98 98 Oxygen Delivery Method Room Air Oxygen Flow Rate 0 Oxygen Delivery Method Room Air Oxygen Flow Rate 0 Narrative Exam Narrative: General:? Patient is well developed and well nourished, in no distress at this time. HEENT:? Normocephalic, atraumatic, extraocular muscles intact, oral pharynx is clear and mucous membranes are moist. Neck: supple and symmetric, trachea is midline, no cervical adenopathy. Negative for JVD Chest:? Normal AP diameter and contour without kyphoscoliosis, no tachypnea, equal chest rise bilaterally. Lungs:? CTA b/l no wheezing rhonchi or rales. Cardio:?RRR no m/r/g. Abdomen: S NT ND. Musculoskeletal:? Muscle strength and tone are equal within normal limits, no deformity. Extremities: No edema or joint effusions. No cyanosis or clubbing. Skin:?lower extremity chronic venous stasis changes bilaterally. R foot, between 2nd and 3rd toes there is a small ulceration, on the ball of his foot there is a deep penetrating wound, wick was in place and extended a few cm deep, no apparent bone visible. there was some mild purulent drainage that was malodorous, with surrounding erythema that extends to the dorsal aspect of his foot and tacks to his midfoot. Neuro:? Alert and orientated x3,? sensation to touch intact in all extremities, no gross deficits noted of cranial nerves. Psych:? Patient has a well-kept appearance, appropriate affect, mental status attitude thought context and judgment are appropriate for age. Objective Labs Result Diagrams: 02/24/22 05:51 02/24/22 05:51 Labs: Laboratory Results - last 24 hr 02/23/22 02/23/22 02/24/22 13:34 16:43 05:51 WBC 5.5 RBC 4.23 L Hgb 12.1 L Hct 36.5 L MCV 86.3 MCH 28.6 MCHC 33.2 RDW 14.0 Plt Count 182 Neut % (Auto) 65.3 Lymph % (Auto) 18.9 L [place] % (Auto) 12.2 Eos % (Auto) 2.9 Baso % (Auto) 0.7 Neut # (Auto) 3600 Lymph # (Auto) 1000 L [place] # (Auto) 700 Eos # (Auto) 200 Baso # (Auto) 0 Sodium Potassium Chloride Carbon Dioxide BUN Creatinine Estimated GFR BUN/Creatinine Ratio Glucose Calcium Magnesium Total Bilirubin AST ALT Alkaline Phosphatase Total Protein Albumin Globulin Albumin/Globulin Ratio Vancomycin Peak 23.6 Vancomycin Trough 12.0 02/24/22 05:51 WBC RBC Hgb Hct MCV MCH MCHC RDW Plt Count Neut % (Auto) Lymph % (Auto) [place] % (Auto) Eos % (Auto) Baso % (Auto) Neut # (Auto) Lymph # (Auto) [place] # (Auto) Eos # (Auto) Baso # (Auto) Sodium 138 Potassium 4.1 Chloride 105 Carbon Dioxide 26 BUN 15 Creatinine 0.78 Estimated GFR > 60 BUN/Creatinine Ratio 19.2 Glucose 96 Calcium 8.5 Magnesium 2.0 Total Bilirubin 0.5 AST 26 ALT 28 Alkaline Phosphatase 65 Total Protein 6.8 Albumin 3.4 L Globulin 3.4 Albumin/Globulin Ratio 1.0 Vancomycin Peak Vancomycin Trough [facility] Medical History Amputation foot, unilat CAD (coronary artery disease) History of amputation of hallux HLD (hyperlipidemia) HTN (hypertension) Osteomyelitis Surgical History H/O knee surgery History of hip surgery Family History Mother Diabetes mellitus Hypertension Father Diabetes mellitus Hypertension Social History marital status: household members: spouse other: recently moved from [facility] Smoking Status: Former smoker alcohol intake: current Assessment & Plan Assessment & Plan narrative: 1. R foot diabetic foot ulceration with possible osteomyelitis, with corresponding R foot cellulitis and possible sepsis with thrombocytopenia and elevated bilirubin. - sent to hospital by wound care Dr. Whaley - MRI negative for osteomyelitis - continue cefepime and vanco given diabetes to cover for pseudomonas and MRSA, wound cultures sent from the ER growing nothing, repeat wound culture on 02/22 with very early growth - per podiatry Dr. Kwok no need for debridement, she changed the dressing and iodoform gauze wick - Dr. Kwok concerned the wound doesn't appear much better to her despite the IV abx, she will reassess evening of 02/24 to decide if he needs to go to the OR on 02/25 - added flagyl for anearobe coverage 2. CAD - continue home asa/plavix 3. DM - hold home oral medications at this time. takes 33U NPH daily. Change to 20 units lantus at bedtime, and sliding scale coverage for now. Adjust as needed. 4. HTN - continue home medications 5. HLD - continue home statin 6. Hyponatremia, mild, unknown chronicity - mild hyponatremia with Na of 133. Continue to follow, currently without symptoms. - improved to 134 Code: Full, surrogate is patient's spouse DVT: hold pending orthopedic evaluation, can have SCDs Dispo: Home in 1-2 days pending possible debridemenet with podiatry. COVID-19 COVID-19 status: Negative Time Spent With Patient Critical Care time: I spent a total of [] minutes of critical care time on this patient's care today; this time is exclusive of procedural time. Quality VTE Deep Vein Thrombosis/Pulmonary Embolism Present on Admission: No
[2022-02-24] MEDS: ISOSORBIDE MONONITRATE ER 30 MG TABLET PO (08:42)
[2022-02-24] MEDS: ATORVASTATIN 20 MG TABLET 80 MG PO (08:42)
[2022-02-24] MEDS: CLOPIDOGREL 75 MG TABLET PO (08:42)
[2022-02-24] MEDS: FUROSEMIDE 40 MG TABLET PO (08:42)
[2022-02-24] MEDS: metroNIDAZOLE 500 MG TABLET PO ×3 (08:42→21:00)
[2022-02-24] MEDS: lisinopriL 5 MG TABLET PO (08:42)
[2022-02-24] MEDS: AMLODIPINE 5 MG TABLET PO (08:42)
[2022-02-24] MEDS: INSULIN LISPRO 100 UNIT/ML 3ML VIAL SUBCUT ×2 (12:34→20:58)
[2022-02-24] MEDS: CEFEPIME 2 GM in SODIUM CHLORIDE 0.9% 100 ML IV ×2 (12:34→23:29)
--- NOTE | 2022-02-24 17:41 | P.PN_ITS ---
Subjective Subjective Interval history: 66 yo diabetic male seen at bedside on HOD#4 with right foot wound. He feels no pain, feels good, and is happy as he just had a shower. The dressing has not been changed and he notes being started on the new oral antibiotic. Denies f/c/n/v and is able to eat/void. Exam Vital Signs (past 8 hours): - 02/24/22 13:42 02/24/22 13:00 Temperature 97.0 F L Pulse Rate 55 L Respiratory Rate 16 Blood Pressure 110/55 L Pulse Oximetry 99 98 Oxygen Delivery Method Room Air Oxygen Delivery Method Room Air Oxygen Flow Rate 0 Const Orientation: alert, awake and oriented x3 Resp Effort & Inspection: normal respiratory effort Cardio Pulses: posterior tibial pulses present on the right and dorsalis pedis present on the right Extrem Right lower extremity: normal capillary refill and foot Details: other Other: Bandaging removed from right foot showing iodonated NuGauze packing to the plantar wound extending up through and exiting the second toe, no malodor. It is not very wet excepting into the second and third interspaces, and the serosanguinous drainage seen plantarly has really improved to mild and unable to produce any on manipulation of the foot. No purulence. Wound plantar second metatarsal head is more clean, dryer, and no erythema plantarly at all. I did not probe the area today. There is still thin skin at sulcus dorsally and some redness but no slough. No crepitus on pressure. Erythema dorsal foot and lateral foot has reduced substantially, no streaking. Not as warm as yesterday on palpation. Pitting edema has reduced by about half of what it was yesterday to the dorsolateral foot. Wet in the interspaces #2, 3. Dorsiflexion foot on ankle with knee straight <10 degrees beyond 90. Objective Labs Result Diagrams: 02/24/22 05:51 02/24/22 05:51 Labs: Laboratory Results - last 24 hr 02/23/22 02/24/22 02/24/22 16:43 05:51 05:51 WBC 5.5 RBC 4.23 L Hgb 12.1 L Hct 36.5 L MCV 86.3 MCH 28.6 MCHC 33.2 RDW 14.0 Plt Count 182 Neut % (Auto) 65.3 Lymph % (Auto) 18.9 L [place] % (Auto) 12.2 Eos % (Auto) 2.9 Baso % (Auto) 0.7 Neut # (Auto) 3600 Lymph # (Auto) 1000 L [place] # (Auto) 700 Eos # (Auto) 200 Baso # (Auto) 0 Sodium 138 Potassium 4.1 Chloride 105 Carbon Dioxide 26 BUN 15 Creatinine 0.78 Estimated GFR > 60 BUN/Creatinine Ratio 19.2 Glucose 96 Calcium 8.5 Magnesium 2.0 Total Bilirubin 0.5 AST 26 ALT 28 Alkaline Phosphatase 65 Total Protein 6.8 Albumin 3.4 L Globulin 3.4 Albumin/Globulin Ratio 1.0 Vancomycin Peak 23.6 02/23/22 Sample foot wound: Gram Stain Final 02/23/22-2042 No Organism Seen No organisms seen White blood cells Few poly WBCs Aerobic Culture for wounds Preliminary 02/24/22- 1153 Organism 1 Gram positive cocci Growth SCANT Action to follow Identification and Sensitivity to Follow Anaerobic Culture Pending [facility] Medical History Amputation foot, unilat CAD (coronary artery disease) History of amputation of hallux HLD (hyperlipidemia) HTN (hypertension) Osteomyelitis Surgical History H/O knee surgery History of hip surgery Family History Mother Diabetes mellitus Hypertension Father Diabetes mellitus Hypertension Social History marital status: household members: spouse other: recently moved from [facility] Smoking Status: Former smoker alcohol intake: current Assessment & Plan Assessment and plan (1) Diabetic ulcer of foot associated with diabetes mellitus due to underlying condition, with fat layer exposed: Status: Acute (2) Diabetes mellitus with neuropathy: Status: Acute Assessment & Plan narrative: 1. R foot plantar plantar second/third metatarsal heads and third interspace diabetic foot ulceration with corresponding R foot cellulitis. - cellulitis and plantar wound drainage appears to be significantly improved f rom last night. Currently delivering iv antibiotics vancomycin and cefepime and started on oral Flagyl last night. Given his diabetes, and noting the new update of scant Gram positive cocci on both aerobic cultures, we may be able to narrow this down a little more in terms of antibiotics. We don't have a final report on the culture and are awaiting susceptibilities. - Wound packing is removed today at bedside and after discussion w/Dr. Garcia this afternoon, he suggested we can switch to Aquacell if the conditions were right. I placed a small amount in the plantar wound and latearl second toe wound gently. - With the improvement today, I don't perceive surgical debridement at this time such as an incision and drainage/debridement. WBC continues in normal range. - At this moment he has an appt with Dr. Garcia for Monday, February 28, but as we see his course, we may plan for him to see Dr. Garcia earlier upon discharge. - With this improvement today, he is in a better situation to be considered for d/c to home soon. Would prefer susceptibilities on culture but not yet available . If further improved tomorrow, may consider d/c to home on oral abx covering gram + cocci (augmentin or similar) but with his status as a diabetic this still may have a multifactorial component of infection and use of iv with infusion as outpatient through his visit with Dr. Garcia Monday may be a more conservative route to go (Vancomycin if avail to do as outpt). Update to follow as I check him tomorrow mid, or ok to hear update from hospitalist if feeling it is looking even further improved. Consideration for weekend coming up and coordination if iv with infusion clinic. -Based on date of discharge, consider dressing change during wknd at home. - Continue nwb right foot. - Ultimately from a declarative standpoint, surgical options as an outpatient once the wounds are more fully healed may involve gastrocnemius recession to reduce plantar pressures, and/or lindsey met head resection if diabetic shoes/orthoses are not managing to control the forefoot pressures and bringing persistent ulcerative risk. 2. DM - Medicine managing. Time Spent With Patient Critical Care time: I spent a total of [] minutes of critical care time on this patient's care today; this time is exclusive of procedural time. Quality VTE Deep Vein Thrombosis/Pulmonary Embolism Present on Admission: No
[2022-02-24] MEDS: INSULIN GLARGINE 100 UNIT/ML 3ML PEN 20 UNIT SUBCUT (20:59)
[2022-02-24] MEDS: TEMAZEPAM 15 MG CAPSULE PO (21:13)
[2022-02-25] VITALS (7 sets, daily range): BP systolic 104–123; BP diastolic 48–64; PULSE 60–62; RESP 14–16; TEMP 36.4–36.6; O2SAT 91–100
[2022-02-25] MEDS: VANCOMYCIN 1,500 MG/300 ML PIGGYBACK 200 MG IV (02:13)
[2022-02-25] MEDS: metroNIDAZOLE 500 MG TABLET PO ×2 (08:31→14:51)
[2022-02-25] MEDS: CLOPIDOGREL 75 MG TABLET PO (08:32)
[2022-02-25] MEDS: FUROSEMIDE 40 MG TABLET PO (08:34)
[2022-02-25] MEDS: lisinopriL 5 MG TABLET PO (08:35)
[2022-02-25] MEDS: AMLODIPINE 5 MG TABLET PO (08:35)
[2022-02-25] MEDS: ISOSORBIDE MONONITRATE ER 30 MG TABLET PO (08:35)
--- NOTE | 2022-02-25 10:25 | P.DS_ITS ---
History of Present Illness History of Present Illness Date Patient Seen: 02/25/22 Time Patient Seen: 09:00 Chief complaint: right foot infection sent by Wound Care Narrative: 66 M with PMH of CAD, HTN, HLD, DM2, osteomyelitis of R foot and chronic diabetic foot wounds who presented from Wound care clinic for further evaluation. He states this morning he developed worsening redness on his R foot but had a scheduled wound care appointment anyway. He was referred to the ER from wound care after evaluation. He denies pain as he has bilateral neuropathy. He denies subjective fever or chills, but did feel a generalized malaise over the past few days. Redness began to develop he thinks this morning. He has a history of chronic infections in that foot, and prior history of prolonged IV antibiotics as well as an amputation of his 1st toe on the R due to osteomye litis. In the emergency room, he was mildly hypertensive and tachycardic but the remainder of his vital signs were unremarkable.? Laboratory evaluation showed a leukocytosis and thrombocytopenia, coagulation studies were unremarkable, chemistries showed a mild hyponatremia with sodium of 133, glucose is 145, the remainder of his chemistry panel was largely unremarkable.? CRP was elevated at 8.8, and ESR was 44.? The ER physician spoke with Orthopedic surgery who deferred evaluation to podiatry, whom the patient saw a few weeks ago and was referred to wound care. He was admitted for IV antibiotics and surgical evaluation. Discharge Providers Provider Date of admission: 02/21/22 12:28 Discharge Date: 02/25/22 Primary care physician: Fili Francisco MD Consults: 02/21/22 16:03 Consult to Inpatient Wound Care Nurse Routine Comment: Reason for consultation: R foot stage IV diabetic foot ulcer 02/21/22 16:04 Consult to Orthopedic Surgery Routine Comment: Consulting Provider: Мария Kwok Reason for consultation: R foot wound, poss. debridement 02/23/22 08:09 Consult to Physical Therapy Evaluate & Treat Comment: Physician Instructions: Evaluate and Treat Discharge provider: Juni Cooper DO Summary Hospital Course Discharge Diagnosis: 1. R foot diabetic foot ulceration with possible osteomyelitis, with corresponding R foot cellulitis and possible sepsis with thrombocytopenia and elevated bilirubin. ?- sent to hospital by wound care Dr. Whaley ?- MRI negative for osteomyelitis ?- continue cefepime and vanco given diabetes to cover for pseudomonas and MRSA, wound cultures sent from the ER growing nothing, repeat wound culture on 02/22 with very early growth ?- per podiatry Dr. Kwok no need for debridement, she changed the dressing and iodoform gauze wick ?- Dr. Kwok said wound appears much better and should be ok to to discharge on oral antibiotics and f/u with Dr. Garcia in clinic on 02/28 - discharged on po augmentin and flagyl as he seemed to turn around with the flagyl added for 2 days, received total 5 days of IV cefepime and vanco - cultures growing strep intermedius and gram negative bacilli, doubt pseudomonas as has no history of this and Dr. Kwok agreed treating with fluoroquinolones would not be ideal 2. CAD ?- continue home asa/plavix 3. DM ?- hold home oral medications at this time. takes 33U NPH daily. Change to 20 units lantus at bedtime, and sliding scale coverage for now. Adjust as needed. - A1c 7.1% 4. HTN ?- continue home medications 5. HLD ?- continue home statin 6. Hyponatremia, mild, unknown chronicity ?- mild hyponatremia with Na of 133. Continue to follow, currently without symptoms. ?- improved to 134 Hospital Course: Admitted for worsening right diabetic foot infection after being seen in wound care clinic. Started on broad spectrum IV abx of vanc and cefepime with somewhat improvement in the wound. Flagyl added which improved the wound much quicker. Dr. Kwok podiatry consulted who provided dressing changes and did not think it needed debridement. Wound cultures grew strep intermedius and gram neg bacilli. She recommended po abx and following up with Dr. Garcia in clinic for wound check and checking culture results. Patient received 5 total days of IV abx and 2 days of flagyl and was discharged on po augmentin and flagyl for double anaerobe coverage. Dr. Kwok showed him how to pack and dress the wound so the patient could do it himself over the week before seeing wound care on wednesday 02/28. Time Spent with Patient Time spent: Greater than 30 minutes Exam Vital Signs (past 8 hours): - 02/25/22 02:30 02/25/22 04:54 02/25/22 08:35 Temperature 97.8 F Pulse Rate 60 62 Respiratory Rate 14 Blood Pressure 123/55 L 119/64 Pulse Oximetry 100 97 Oxygen Delivery Method Room Air Oxygen Flow Rate 0 0 02/25/22 09:05 Temperature 97.7 F Pulse Rate 62 Respiratory Rate 16 Blood Pressure 119/64 Pulse Oximetry 98 Oxygen Delivery Method Oxygen Flow Rate Oxygen Delivery Method Room Air Oxygen Flow Rate 0 Narrative Exam Narrative: General:? Patient is well developed and well nourished, in no distress at this time. HEENT:? Normocephalic, atraumatic, extraocular muscles intact, oral pharynx is clear and mucous membranes are moist. Neck: supple and symmetric, trachea is midline, no cervical adenopathy. Negative for JVD Chest:? Normal AP diameter and contour without kyphoscoliosis, no tachypnea, equal chest rise bilaterally. Lungs:? CTA b/l no wheezing rhonchi or rales. Cardio:?RRR no m/r/g. Abdomen: S NT ND. Musculoskeletal:? Muscle strength and tone are equal within normal limits, no deformity. Extremities: No edema or joint effusions. No cyanosis or clubbing. Skin:?lower extremity chronic venous stasis changes bilaterally. Right foot has tunneling wound from mid-plantar foot up to 2nd digit. Drainage serosanguinous, improved surrounding erythema Neuro:? Alert and orientated x3,? sensation to touch intact in all extremities, no gross deficits noted of cranial nerves. Psych:? Patient has a well-kept appearance, appropriate affect, mental status attitude thought context and judgment are appropriate for age. Objective Labs Result Diagrams: 02/24/22 05:51 02/24/22 05:51 [facility] Medical History Amputation foot, unilat CAD (coronary artery disease) History of amputation of hallux HLD (hyperlipidemia) HTN (hypertension) Osteomyelitis Surgical History H/O knee surgery History of hip surgery Family History Mother Diabetes mellitus Hypertension Father Diabetes mellitus Hypertension Social History marital status: household members: spouse other: recently moved from [facility] Smoking Status: Former smoker alcohol intake: current Discharge Plan Discharge Plan Patient Disposition: Home Provider Discharge Comment: You were admitted for worsening infection of the right foot which improved with IV antibiotics. Dr. Kwok helped change the dressings and did not think debridement was necessary. You will continue on 1 more week of oral antibiotics and f/u with Dr. Garcia in clinic on 02/28. Discharge orders & Medications Prescriptions: New metronidazole 500 mg Tablet 500 mg PO TID 7 Days Qty: 21 0RF Rx Instructions: start on evening of 02/25 amoxicillin-pot clavulanate 875-125 mg tablet 1 tab PO BID 7 Days Qty: 14 0RF Rx Instructions: start evening of 02/25 Continued furosemide 40 mg Tablet 40 mg PO DAILY atorvastatin 80 mg Tablet 80 mg PO DAILY isosorbide mononitrate 30 mg Tablet Extended Release 24 Hr 30 mg PO DAILY clopidogrel 75 mg Tablet 75 mg PO DAILY amlodipine 5 mg Tablet 5 mg PO DAILY metformin 1,000 mg Tablet 1,000 mg PO BID Humulin N NPH U-100 Insulin 100 unit/mL Suspension 33 unit SUBCUT DAILY lisinopril 5 mg Tablet 5 mg PO DAILY Jardiance 25 mg Tablet 25 mg PO DAILY Ozempic 1 mg/dose (2 mg/1.5 mL) Pen Injector 1 mg SUBCUT QWEEK Follow up/Referrals: Fili Francisco MD [Primary Care Provider] - 2 Weeks Spencer Garcia MD [Physician] - 3-5 Days (Has appt on 02/28) Discharge Data Primary Care Provider: Fili Francisco Quality VTE Deep Vein Thrombosis/Pulmonary Embolism Present on Admission: No
[2022-02-25] MEDS: CEFEPIME 2 GM in SODIUM CHLORIDE 0.9% 100 ML IV (12:00)
[2022-02-25] MEDS: INSULIN LISPRO 100 UNIT/ML 3ML VIAL SUBCUT (12:03)
--- NOTE | 2022-02-25 12:55 | PM.PN.1 ---
Subjective Subjective Interval history: 66 yo diabetic male seen at bedside on HOD#5 with right foot wound. He feels no pain, feels good. The dressing has not been changed although needed reinforcement over night as part of it slid off. Denies f/c/n/v and is able to eat/void. Exam Vital Signs (past 8 hours): - 02/25/22 08:35 02/25/22 09:05 02/25/22 09:00 Temperature 97.7 F Pulse Rate 62 62 Respiratory Rate 16 Blood Pressure 119/64 119/64 Pulse Oximetry 98 98 Oxygen Delivery Method Room Air Oxygen Delivery Method Room Air Oxygen Flow Rate 0 Const Orientation: alert, awake and oriented x3 Resp Effort & Inspection: normal respiratory effort Cardio Pulses: posterior tibial pulses present on the right and dorsalis pedis present on the right Extrem Right lower extremity: normal capillary refill and foot Details: other Other: Bandaging removed from right foot showing absorption of the Acquacell packing somewhat to the plantar wound and more absorption to the second one lateral second toe, no malodor. It is not very wet excepting into the third interspace, and no serosanguinous drainage seen plantarly. No purulence. Wound plantar second metatarsal head is clean although exposed but receding, and no erythema plantarly at all. Skin at sulcus dorsally has firmed up more, and really reduced redness, and no slough. No crepitus on pressure. Erythema pretty much gone dorsal foot and lateral foot, with some petechiae remaining lateral foot. No icnrease in warmth. Pitting edema has reduced by another half of what it was yesterday to the dorsolateral foot. Dorsiflexion foot on ankle with knee straight <10 degrees beyond 90. Objective Labs Result Diagrams: 02/24/22 05:51 02/24/22 05:51 Labs: 02/23/22: Right foot wound: Gram Stain Final 02/23/22-2042 No Organism Seen No organisms seen White blood cells Few poly WBCs Aerobic Culture for wounds Preliminary 02/25/22-1033 Organism 1 Gram negative bacilli Growth SCANT Action to follow Identification and Sensitivity to Follow Anaerobic Culture Preliminary 02/25/22-1242 No growth. 02/21/22: Right foot wound: Gram Stain Final 02/21/22-1453 No Organism Seen No organisms seen White blood cells No WBC seen Aerobic Culture for wounds Final 02/25/22-826 Organism 1 Streptococcus intermedius Growth SCANT Action to follow No Further Workup Anaerobic Culture Final 02/21/22-145 Test not performed [facility] Medical History Amputation foot, unilat CAD (coronary artery disease) History of amputation of hallux HLD (hyperlipidemia) HTN (hypertension) Osteomyelitis Surgical History H/O knee surgery History of hip surgery Family History Mother Diabetes mellitus Hypertension Father Diabetes mellitus Hypertension Social History marital status: household members: spouse other: recently moved from [facility] Smoking Status: Former smoker alcohol intake: current Assessment & Plan Assessment and plan (1) Diabetic ulcer of foot associated with diabetes mellitus due to underlying condition, with fat layer exposed: Status: Acute (2) Diabetes mellitus with neuropathy: Status: Acute Assessment & Plan narrative: 1. R foot plantar plantar second/third metatarsal heads and third interspace diabetic foot ulceration with corresponding R foot cellulitis. - Cellulitis and plantar wound drainage appears to be even further significantly improved from last night. Currently delivering iv antibiotics vancomycin and cefepime and getting oral Flagyl. - Update of scant Gram positive Strep intermedius and Gram neg bacillus, we may be able to narrow this down a little more in terms of antibiotics. Discussed with Dr. Cooper and decided placement on orals upon d/c to home using Augmentin and Flagyl. This can be updated if susceptibilities show differently. - Wound packing is removed today at bedside and Aquacell seems to also be helping improve local conditions. He feels comfortable performing dressing changes with his , and he has the Aquacell here to use as the base, and can get the other gauze, etc to use. I detailed instructions by showing him how to dress the foot. Suggest inspecting it tomorrow and if the Aquacell looks very fluid-filled, he can change it tomorrow. If it does not, he can change it Monday. I placed a small amount in the plantar wound and lateral second toe wound gently. Place some in IS3 to absorb moisture but this can be converted to wound foam which he has. - With the improvement today, I don't perceive surgical debridement at this time such as an incision and drainage/debridement. WBC continues in normal range. - At this moment he has an appt with Dr. Garcia for Monday, February 28, and we will plan for him to keep that upon discharge. F/u with me based on Wound care course. - Continue nwb right foot. - Ultimately from a declarative standpoint, surgical options as an outpatient once the wounds are more fully healed may involve gastrocnemius recession to reduce plantar pressures, and/or lindsey met head resection if diabetic shoes/orthoses are not managing to control the forefoot pressures and bringing persistent ulcerative risk. - Details discussed with Dr. Cooper and d/c to home suspected for today. 2. DM - Medicine managing, related it to be stable for d/c to home. Time Spent With Patient Critical Care time: I spent a total of [] minutes of critical care time on this patient's care today; this time is exclusive of procedural time. Quality VTE Deep Vein Thrombosis/Pulmonary Embolism Present on Admission: No
--- NOTE | 2022-02-25 16:10 | PC.NURSE ---
Pt is A&OX3, VSS, afebrile on RA. He denies pain to R foot wound. Dressing is c/d/i. BG well controlled this a.m. at 103. MD Kwok at bedside with MD Cooper providing discharge instructions, as well as wound care teaching. Per MD orders pt is given ortho boot. Pt verbalizes acknowledgement of medications, activity, s/sx of infection/sepsis, as well as follow up appointments. He is escorted via w/ch to private vehicle with his for discharge home this afternoon at approximately 1445.
== END 2022-02-25 15:00 | disposition home or self-care (01) | DRG 872 ==
LOC: ED 11:54 → AC 12:29
PROVIDERS: Admitting Provider Internal Medicine; Emergency Provider Emergency Medicine; PCP Family Medicine; Referring Provider Emergency Medicine; Visit Provider Internal Medicine
DX: A41.9 Sepsis, unspecified organism (principal); L03.115 Cellulitis of right lower limb; E87.1 Hypo-osmolality and hyponatremia; L97.412 Non-pressure chronic ulcer of right heel and midfoot with fat layer exposed; I25.10 Atherosclerotic heart disease of native coronary artery without angina pectoris; E11.621 Type 2 diabetes mellitus with foot ulcer; I10 Essential (primary) hypertension; E78.5 Hyperlipidemia, unspecified; D69.6 Thrombocytopenia, unspecified; E11.40 Type 2 diabetes mellitus with diabetic neuropathy, unspecified; B95.4 Other streptococcus as the cause of diseases classified elsewhere; Z79.85 Long-term (current) use of injectable non-insulin antidiabetic drugs; Z79.4 Long term (current) use of insulin; Z87.891 Personal history of nicotine dependence; Z20.822 Contact with and (suspected) exposure to COVID-19; Z79.84 Long term (current) use of oral hypoglycemic drugs
CPT/HCPCS: 11042; 36415; 73630; 73720; 80053; 80202; 82962; 83036; 83605; 83690; 83735; 84145; 85025; 85610; 85651; 85730; 86140; 87040; 87070; 87075; 87077; 87186; 87205; 87635; 96365; 97161; 99214; 99284; 99285; 99291; C9803; A9579; J0692; J1815

== ENCOUNTER → 2022-02-28 08:38 | Outpatient (CLI) | payer MEDICARE, SELFPAY ==
[2022-02-21 12:31] VITALS: BMI 28.7
== END ==
PROVIDERS: PCP Family Medicine; Referring Provider Family Medicine; Visit Provider Family Medicine
DX: E11.621 Type 2 diabetes mellitus with foot ulcer (principal); L97.513 Non-pressure chronic ulcer of other part of right foot with necrosis of muscle; Z89.421 Acquired absence of other right toe(s); L03.115 Cellulitis of right lower limb; B96.29 Other Escherichia coli [E. coli] as the cause of diseases classified elsewhere; B95.4 Other streptococcus as the cause of diseases classified elsewhere; E11.40 Type 2 diabetes mellitus with diabetic neuropathy, unspecified; R60.0 Localized edema
CPT/HCPCS: 11043; 99214

== ENCOUNTER → 2022-03-08 09:38 | Outpatient (CLI) | payer MEDICARE, SELFPAY ==
[2022-02-21 12:31] VITALS: BMI 28.7
== END ==
PROVIDERS: PCP Family Medicine; Referring Provider Podiatrist; Visit Provider Family Medicine
DX: E11.621 Type 2 diabetes mellitus with foot ulcer (principal); L97.516 Non-pressure chronic ulcer of other part of right foot with bone involvement without evidence of necrosis; E11.40 Type 2 diabetes mellitus with diabetic neuropathy, unspecified; Z89.421 Acquired absence of other right toe(s); R60.0 Localized edema
CPT/HCPCS: 11042; 97605

== ENCOUNTER → 2022-03-10 11:07 | Outpatient (CLI) | payer OTHER, SELFPAY ==
[2022-02-21 12:31] VITALS: BMI 28.7
== END ==
PROVIDERS: PCP Family Medicine; Referring Provider Podiatrist; Visit Provider Family Medicine
DX: E11.621 Type 2 diabetes mellitus with foot ulcer (principal); L97.516 Non-pressure chronic ulcer of other part of right foot with bone involvement without evidence of necrosis; R60.0 Localized edema
CPT/HCPCS: 97605

== ENCOUNTER → 2022-03-15 14:40 | Outpatient (CLI) | payer OTHER, SELFPAY ==
[2022-02-21 12:31] VITALS: BMI 28.7
== END ==
PROVIDERS: PCP Family Medicine; Referring Provider Podiatrist; Visit Provider Surgery
DX: E11.621 Type 2 diabetes mellitus with foot ulcer (principal); L97.512 Non-pressure chronic ulcer of other part of right foot with fat layer exposed; E11.42 Type 2 diabetes mellitus with diabetic polyneuropathy; Z96.698 Presence of other orthopedic joint implants
CPT/HCPCS: 11042; 97605

== ENCOUNTER → 2022-03-18 13:56 | Outpatient (CLI) | payer OTHER, SELFPAY ==
[2022-02-21 12:31] VITALS: BMI 28.7
== END ==
PROVIDERS: PCP Family Medicine; Referring Provider Family Medicine; Visit Provider Nurse Practitioner Family
DX: E11.621 Type 2 diabetes mellitus with foot ulcer (principal); L97.512 Non-pressure chronic ulcer of other part of right foot with fat layer exposed; R60.0 Localized edema
CPT/HCPCS: 97605

== ENCOUNTER → 2022-03-22 13:42 | Outpatient (CLI) | payer OTHER, SELFPAY ==
[2022-02-21 12:31] VITALS: BMI 28.7
== END ==
PROVIDERS: PCP Family Medicine; Referring Provider Podiatrist; Visit Provider Surgery
DX: E11.621 Type 2 diabetes mellitus with foot ulcer (principal); L97.512 Non-pressure chronic ulcer of other part of right foot with fat layer exposed; R60.0 Localized edema; E11.40 Type 2 diabetes mellitus with diabetic neuropathy, unspecified; Z96.698 Presence of other orthopedic joint implants
CPT/HCPCS: 11042; 97605

== ENCOUNTER → 2022-03-24 14:55 | Outpatient (CLI) | payer OTHER, MEDICARE, SELFPAY ==
[2022-02-21 12:31] VITALS: BMI 28.7
== END ==
PROVIDERS: PCP Family Medicine; Referring Provider Family Medicine; Visit Provider Surgery
DX: E11.621 Type 2 diabetes mellitus with foot ulcer (principal); L97.512 Non-pressure chronic ulcer of other part of right foot with fat layer exposed; R60.0 Localized edema
CPT/HCPCS: 97605

== ENCOUNTER → 2022-04-05 12:59 | Outpatient (CLI) | payer OTHER, SELFPAY ==
[2022-02-21 12:31] VITALS: BMI 28.7
== END ==
PROVIDERS: PCP Family Medicine; Referring Provider Podiatrist; Visit Provider Surgery
DX: E11.621 Type 2 diabetes mellitus with foot ulcer (principal); L97.512 Non-pressure chronic ulcer of other part of right foot with fat layer exposed; R60.0 Localized edema; L84 Corns and callosities
CPT/HCPCS: 97605

== ENCOUNTER → 2022-04-08 12:36 | Outpatient (CLI) | payer OTHER, SELFPAY ==
[2022-02-21 12:31] VITALS: BMI 28.7
== END ==
PROVIDERS: PCP Family Medicine; Referring Provider Family Medicine; Visit Provider Surgery
DX: E11.621 Type 2 diabetes mellitus with foot ulcer (principal); L97.512 Non-pressure chronic ulcer of other part of right foot with fat layer exposed; R60.0 Localized edema; L84 Corns and callosities
CPT/HCPCS: 97605

== ENCOUNTER → 2022-04-12 12:57 | Outpatient (CLI) | payer OTHER, SELFPAY ==
[2022-02-21 12:31] VITALS: BMI 28.7
== END ==
PROVIDERS: PCP Family Medicine; Referring Provider Podiatrist; Visit Provider Surgery
DX: E11.621 Type 2 diabetes mellitus with foot ulcer (principal); L97.512 Non-pressure chronic ulcer of other part of right foot with fat layer exposed; R60.0 Localized edema; L84 Corns and callosities; E11.40 Type 2 diabetes mellitus with diabetic neuropathy, unspecified; Z89.421 Acquired absence of other right toe(s); Z96.698 Presence of other orthopedic joint implants; Z79.02 Long term (current) use of antithrombotics/antiplatelets
CPT/HCPCS: 97597

== ENCOUNTER → 2022-04-14 15:32 | Outpatient (CLI) | payer OTHER, SELFPAY ==
[2022-02-21 12:31] VITALS: BMI 28.7
== END ==
PROVIDERS: PCP Family Medicine; Referring Provider Podiatrist; Visit Provider Surgery
DX: E11.621 Type 2 diabetes mellitus with foot ulcer (principal); L97.512 Non-pressure chronic ulcer of other part of right foot with fat layer exposed; R60.0 Localized edema; L84 Corns and callosities
CPT/HCPCS: 29445

== ENCOUNTER → 2022-04-21 10:20 | Outpatient (CLI) | payer OTHER, SELFPAY ==
[2022-02-21 12:31] VITALS: BMI 28.7
== END ==
PROVIDERS: PCP Family Medicine; Referring Provider Podiatrist; Visit Provider Surgery
DX: L08.9 Local infection of the skin and subcutaneous tissue, unspecified (principal); T14.8XXA Other injury of unspecified body region, initial encounter; Z89.411 Acquired absence of right great toe; E11.621 Type 2 diabetes mellitus with foot ulcer; L97.512 Non-pressure chronic ulcer of other part of right foot with fat layer exposed; L97.514 Non-pressure chronic ulcer of other part of right foot with necrosis of bone; R60.0 Localized edema; L53.9 Erythematous condition, unspecified; E11.40 Type 2 diabetes mellitus with diabetic neuropathy, unspecified; Z89.421 Acquired absence of other right toe(s); Z96.698 Presence of other orthopedic joint implants; Z79.02 Long term (current) use of antithrombotics/antiplatelets
CPT/HCPCS: 11042; 11044; 73630; 87070; 87075; 87077; 87147; 87186; 87205; 99213; 99214

== ENCOUNTER → 2022-04-21 11:43 | Outpatient (CLI) | payer OTHER, SELFPAY ==
[2022-02-21 12:31] VITALS: BMI 28.7
--- NOTE | 2022-04-21 11:47 | DI.RAD.S_ITS ---
PROCEDURE: XR FOOT RT MIN 3V INDICATIONS: Wound Right 2nd toe TECHNIQUE: 3 views of the foot were acquired. COMPARISON: [facility], , XR FOOT RT MIN 3V, 02/21/2022, 10:27. FINDINGS: Bones: There has been amputation of the 1st digit distal to the distal 1st proximal phalanx. Fixation is present within the 2nd, 3rd and 4th digits at the PIP joint. 2nd and 3rd metatarsal head fixation is present. No erosions are identified. Soft tissues: No tibiotalar joint effusion. Achilles tendon appears normal. IMPRESSION: Postsurgical changes without visualized lucencies to suggest osteomyelitis. Dictated by: Sugey Luis M.D. on 04/21/2022 at 18:57 Approved by: Sugey Luis M.D. on 04/21/2022 at 18:58
== END ==
PROVIDERS: PCP Family Medicine; Referring Provider Surgery; Visit Provider Surgery
DX: L08.9 Local infection of the skin and subcutaneous tissue, unspecified (principal); T14.8XXA Other injury of unspecified body region, initial encounter; Z89.411 Acquired absence of right great toe
CPT/HCPCS: 73630

== ENCOUNTER → 2022-04-25 09:14 | Outpatient (CLI) | payer OTHER, SELFPAY ==
[2022-02-21 12:31] VITALS: BMI 28.7
== END ==
PROVIDERS: PCP Family Medicine; Referring Provider Podiatrist; Visit Provider Surgery
DX: E11.621 Type 2 diabetes mellitus with foot ulcer (principal); L97.512 Non-pressure chronic ulcer of other part of right foot with fat layer exposed; L97.514 Non-pressure chronic ulcer of other part of right foot with necrosis of bone; R60.0 Localized edema; L84 Corns and callosities; E11.40 Type 2 diabetes mellitus with diabetic neuropathy, unspecified; Z89.421 Acquired absence of other right toe(s); Z96.698 Presence of other orthopedic joint implants; Z79.02 Long term (current) use of antithrombotics/antiplatelets
CPT/HCPCS: 11044; 87070; 87075; 87077; 87147; 87186; 87205; 97597; 99213

== ENCOUNTER → 2022-05-02 09:58 | Outpatient (CLI) | payer OTHER, SELFPAY ==
[2022-02-21 12:31] VITALS: BMI 28.7
== END ==
PROVIDERS: PCP Family Medicine; Referring Provider Family Medicine; Visit Provider Surgery
DX: E11.621 Type 2 diabetes mellitus with foot ulcer (principal); L97.512 Non-pressure chronic ulcer of other part of right foot with fat layer exposed; L97.514 Non-pressure chronic ulcer of other part of right foot with necrosis of bone; Z89.421 Acquired absence of other right toe(s); L84 Corns and callosities; R60.0 Localized edema
CPT/HCPCS: 11042; 97597

== ENCOUNTER → 2022-05-10 10:32 | Outpatient (CLI) | payer OTHER, SELFPAY ==
[2022-02-21 12:31] VITALS: BMI 28.7
== END ==
PROVIDERS: PCP Family Medicine; Referring Provider Family Medicine; Visit Provider Surgery
DX: E11.621 Type 2 diabetes mellitus with foot ulcer (principal); L97.514 Non-pressure chronic ulcer of other part of right foot with necrosis of bone; L97.511 Non-pressure chronic ulcer of other part of right foot limited to breakdown of skin; M86.171 Other acute osteomyelitis, right ankle and foot; E11.40 Type 2 diabetes mellitus with diabetic neuropathy, unspecified; R60.0 Localized edema; L84 Corns and callosities; L85.8 Other specified epidermal thickening
CPT/HCPCS: 11042

== ENCOUNTER → 2022-05-17 12:47 | Outpatient (CLI) | payer OTHER, SELFPAY ==
[2022-02-21 12:31] VITALS: BMI 28.7
== END ==
PROVIDERS: PCP Family Medicine; Referring Provider Family Medicine; Visit Provider Surgery
DX: E11.621 Type 2 diabetes mellitus with foot ulcer (principal); L97.516 Non-pressure chronic ulcer of other part of right foot with bone involvement without evidence of necrosis; E11.40 Type 2 diabetes mellitus with diabetic neuropathy, unspecified; L84 Corns and callosities; Z89.421 Acquired absence of other right toe(s); L85.9 Epidermal thickening, unspecified
CPT/HCPCS: 11042; 11055; 99212; 99213

== ENCOUNTER 2022-05-20 09:20 | Day surgery (SDC) | payer OTHER, SELFPAY ==
[2022-02-21 12:31] VITALS: BMI 28.7
[2022-05-19 14:16] VITALS: BMI 29.5
--- NOTE | 2022-05-20 | PATH_ITS ---
[facility] Accession Number: [id number] No. of containers..02 Tissue . 01 Material submitted: . PART A: skin - DEEP TISSUE, RIGHT SECOND TOE PART B: toe - RIGHT SECOND TOE . 01 Diagnosis: A. Soft Tissue, Deep, Right Second Toe, Excision: Fibrous and connective tissue with reactive changes, old hemorrhage, and mild chronic inflammation. . B. Right Second Toe, Amputation: Ulceration of skin and suppurative inflammation of soft tissue. Focal changes consistent with subacute osteomyelitis. Skin, soft tissue, and bony margins of excision appear viable. [facility] 05/26/2022 1441 Local . 01 Electronically signed: . Vi Varma MD, Pathologist NPI- [id number] . 01 Gross description: . A. Received in formalin, labeled with the patient's name, , and deep tissue right second toe, and consists of multiple pale pascual irregular soft tissue fragments aggregating to 1.5 x 0.7 x 0.3 cm. The specimen is submitted entirely in cassette A1. B. Received in formalin, labeled with the patient's name, , and right second toe, and consists of a disarticulated digit measuring 5.7 cm in length by 2.0 cm in diameter with exposed bone extending 2.5 cm from the soft tissue margin. The nail bed is brown and thickened. The cutaneous surface is significant for a pascual, ulcerated area on the dorsal aspect measuring 1.0 x 0.5 cm with pascual, soft tissue identified at the base of the ulcer. The remaining cutaneous surface is pascual, wrinkled, and unremarkable. The soft tissue margin is inked blue while the disarticulated surface is inked orange. Sectioning reveals pascual to brown soft tissue and pascual trabecular osseous tissue that is relatively easy to section with a scalpel. [employer] sections are submitted as follows: B1-B2: Soft tissue margin en face. B3: Articular surface en face. B4: Software Asset Manager cross section with ulcer and underlying bone, submitted for decalcification. ([id number]) /FRR 05/21/2022 1533 Local . 01 Pathologist provided ICD-10: E11.621 . 01 CPT . 158031, 562012 Specimen Comment: A courtesy copy of this report has been sent to [phone] Performed at: 01 [facility] [address] [place] [address] [id number] MD Bobo Kerr MD Phone: [phone]
[2022-05-20] MEDS: LACTATED RINGERS 1,000 ML 150 ML IV (11:28)
[2022-05-20 11:31] VITALS: BP 139/69; PULSE 83; RESP 20; TEMP 36.6; O2SAT 98; BMI 29.5
[2022-05-20] MEDS: LACTATED RINGERS 1,000 ML 42 ML IV (12:30)
--- NOTE | 2022-05-20 12:37 | PM.PREOP ---
Pre-operative Note Interval Note History & Physical reviewed/Exam performed by Physician: Yes Changes to H&P: No
[2022-05-20] MEDS: CEFAZOLIN 2 GM/100 ML PREMIX 100 ML IV (12:48)
[2022-05-20] MEDS: BUPIVACAINE 0.5% W/ EPI (PF) 30 ML VIAL INJ (13:20)
--- NOTE | 2022-05-20 13:28 | SUR.OPER ---
Supine on padded OR bed, head on pillow, arms secured on padded arm boards at <90 degrees abduction, legs uncrossed, safety belt across abdomen, bump under operative hip, tape over blanket over nonoperative lower leg.
[2022-05-20 13:49] VITALS: BP 117/59; PULSE 72; RESP 13; TEMP 36.6; O2SAT 96
[2022-05-20 13:53] VITALS: BP 119/60; PULSE 60; RESP 13; O2SAT 95
[2022-05-20 14:03] VITALS: BP 110/57; PULSE 54; RESP 13; O2SAT 95
--- NOTE | 2022-05-20 14:05 | PM.OP.1 ---
Operative Date/Time/Diagnoses Date of procedure: 05/20/22 Time of procedure: 14:05 Pre-op diagnosis: Diabetic ulcer right foot with bone necrosis Diabetic neuropathy Osteomyelitis Post-op diagnosis: same Procedure & Clinicians Procedure: 1. Amputation toe right 2nd MTP joint CPT code 64337 -T6 Same procedure as scheduled: Yes Indications: Patient is a 66-year-old male with a right foot 2nd toe wound and diabetes. He has been followed by Dr. Kwok previously and has dense neuropathy and has had a previous partial amputations of his great toe. He has been treated by [facility] recently for foot infection and diabetic ulcer. Was started on IV antibiotics and is followed by Dr. Salomon at [facility] Infectious Disease he has been on IV cefazolin. For screws Staph aureus. He has exposed bone as the top of his great toe where he is previously had a hammertoe fixation. And has angulated deformity at the D IP joint. Was indicated for 2nd toe amputation. The risks and benefits of the procedure have been discussed with the patient and given the opportunity to ask questions. The risks of surgery include but are not limited to infection, need for additional procedures, persistence of pain, damage to nerves and blood vessels, posttraumatic arthritis, DVT, PE, cardiopulmonary complications and . The patient expressed a thorough understanding of the risks and benefits of surgery and has elected to proceed. Consent was signed. Surgeon: Padmini Cummins Click Yes if Unassisted: Yes Anesthesia Type: General and Local Operative Notes Findings: Second toe with open wound over PIP joint were previous hammertoe fixation completed. Rigid angular deformity at the IP joint. Exposed bone through dorsal middle phalanx proximal phalanx wound. There is a healed ulcer at the plantar MTP no fluctuance. No ascending erythema. Second toe was removed through the MTP joint. Partial visualization of previously placed metatarsal neck while screw demonstrated. No deep abscess found. Closure Type: primary Specimen(s): none sent Estimated Blood Loss (mL): 5 Blood products transfused: none Tourniquet time (min): 15 Procedure in detail: Patient was seen in the preoperative area the site of surgery marked informed consent confirmed. The patient was brought back to the operating room by the anesthesia team positioned supine on operative table. The operative extremities prepped and draped in the standard sterile fashion. All bony prominences were well padded and SCD was placed on the contralateral lower extremity. Formal time-out procedure was performed confirming the patient's side and site of surgery administration of appropriate preoperative antibiotic informed consent. Attention was turned to the right lower extremity the Esmarch was used for exsanguination the tourniquet elevated on the thigh to 250 mmHg. This stayed elevated for 15 minutes. Incision for the amputation of the 2nd toe at the MTP joint was drawn out on the skin then a sharp knife was used for the amputation through the skin and deep tissues. The great toe was amputated after transecting the joint capsule and flexors and extensors and sent for pathology. At this point thorough irrigation of the amputation site was completed. No deep abscess was found. Deep tissue was taken as a sample for microbiology. Once this was completed the deep tissues were closed with 2-0 PDS suture. Tourniquet was released and hemostasis achieved. Subcutaneous tissues were closed with 4-0 Monocryl and the skin with 4-0 nylon suture. A sterile dressing with Xeroform gauze Arthur and Coban was placed. All other toes pinked up nicely after tourniquet released. The patient was woken from anesthesia and taken to recovery room in good condition there no immediate complications from this procedure. Counts were correct. Complications: none Post-operative Condition: stable Disposition: PACU Plan for aftercare: Weightbear as tolerated in postoperative shoe. Dressing should stay in place unless it is uncomfortable or feels tight or saturated then can be changed to a clean sterile dressing. Sutures will stay in place 3-4 weeks. Continue IV antibiotics per Infectious Disease. Follow-up in 3 -4weeks for suture removal
[2022-05-20 14:08] VITALS: BP 114/56; PULSE 51; RESP 15; O2SAT 15
[2022-05-20 14:14] VITALS: BP 117/59; PULSE 59; RESP 16; TEMP 36.2; O2SAT 95
== END 2022-05-20 15:02 | disposition home or self-care (01) ==
PROVIDERS: PCP Family Medicine; Referring Provider Podiatrist; Visit Provider Orthopaedic Surgery Foot and Ankle Surgery
PROC: (CPT 28820; principal; 2022-05-20 11:45)
DX: E11.621 Type 2 diabetes mellitus with foot ulcer (principal); L97.514 Non-pressure chronic ulcer of other part of right foot with necrosis of bone; E11.42 Type 2 diabetes mellitus with diabetic polyneuropathy; E11.69 Type 2 diabetes mellitus with other specified complication; M86.9 Osteomyelitis, unspecified; Z79.4 Long term (current) use of insulin; Z79.84 Long term (current) use of oral hypoglycemic drugs
CPT/HCPCS: 28820; 82962; J0690; J3010

== ENCOUNTER → 2022-05-24 08:51 | Outpatient (CLI) | payer OTHER, SELFPAY ==
[2022-02-21 12:31] VITALS: BMI 28.7
== END ==
PROVIDERS: PCP Family Medicine; Referring Provider Family Medicine; Visit Provider Surgery
DX: T87.89 Other complications of amputation stump (principal); L97.511 Non-pressure chronic ulcer of other part of right foot limited to breakdown of skin; Z89.421 Acquired absence of other right toe(s); M86.171 Other acute osteomyelitis, right ankle and foot; E11.42 Type 2 diabetes mellitus with diabetic polyneuropathy; Z96.698 Presence of other orthopedic joint implants; Z79.02 Long term (current) use of antithrombotics/antiplatelets
CPT/HCPCS: 99213

== ENCOUNTER → 2022-05-31 13:14 | Outpatient (CLI) | payer OTHER, SELFPAY ==
[2022-02-21 12:31] VITALS: BMI 28.7
== END ==
PROVIDERS: PCP Family Medicine; Referring Provider Family Medicine; Visit Provider Surgery
DX: Z86.31 Personal history of diabetic foot ulcer (principal); E11.40 Type 2 diabetes mellitus with diabetic neuropathy, unspecified; Z89.421 Acquired absence of other right toe(s)
CPT/HCPCS: 99212; 99213

== ENCOUNTER → 2023-10-27 09:17 | Outpatient (CLI) | payer OTHER, SELFPAY ==
[2022-02-21 12:31] VITALS: BMI 28.7
== END ==
LOC: WC 09:19
PROVIDERS: PCP Family Medicine; Referring Provider Family Medicine; Visit Provider Physician Assistant
DX: E11.628 Type 2 diabetes mellitus with other skin complications (principal); L84 Corns and callosities; M79.81 Nontraumatic hematoma of soft tissue
CPT/HCPCS: 99212; 99213

== ENCOUNTER → 2023-11-21 09:55 | Outpatient (CLI) | payer OTHER, SELFPAY ==
[2022-02-21 12:31] VITALS: BMI 28.7
== END ==
LOC: WC 09:56
PROVIDERS: PCP Family Medicine; Referring Provider Podiatrist; Visit Provider Surgery
DX: E11.621 Type 2 diabetes mellitus with foot ulcer (principal); E11.42 Type 2 diabetes mellitus with diabetic polyneuropathy; L97.522 Non-pressure chronic ulcer of other part of left foot with fat layer exposed; L97.512 Non-pressure chronic ulcer of other part of right foot with fat layer exposed; L84 Corns and callosities; R23.4 Changes in skin texture; R60.0 Localized edema
CPT/HCPCS: 11042; 87070; 87075; 87205; 99213

== ENCOUNTER → 2023-11-21 10:53 | Outpatient (CLI) | payer OTHER, SELFPAY ==
[2022-02-21 12:31] VITALS: BMI 28.7
--- NOTE | 2023-11-21 10:55 | DI.RAD.S_ITS ---
PROCEDURE: XR FOOT LT MIN 3V INDICATIONS: Ulcer of left 3rd toe, rule out osteo TECHNIQUE: 3 views of the foot were acquired. COMPARISON: [facility], CR, XR FOOT RT MIN 3V, 04/21/2022, 11:52. FINDINGS: Bones: No acute fracture or dislocations. There is a focal area of osteopenia within the distal phalanx of the 3rd toe. Remote injury to the base of the proximal phalanx at the 2nd toe. Enthesopathy of the calcaneus. Osteoarthritic changes to the hindfoot, midfoot and forefoot. Erosive like changes to the distal phalanx of the 2nd toe. Soft tissues: No tibiotalar joint effusion. Achilles tendon appears normal. Vascular calcifications. There is soft tissue swelling of the 3rd toe. IMPRESSION: There is soft tissue swelling of the 3rd toe with focal area of osteopenia in the distal phalanx. Findings are suspicious for osteomyelitis. Dictated by: Pavan Brandt M.D. on 11/21/2023 at 16:15 Approved by: Pavan Brandt M.D. on 11/21/2023 at 16:26
--- NOTE | 2023-11-21 10:55 | DI.RAD.S_ITS ---
PROCEDURE: XR FOOT RT MIN 3V INDICATIONS: Ulcer of right plantar foot, rule out osteo TECHNIQUE: 3 views of the foot were acquired. COMPARISON: [facility], CR, XR FOOT RT MIN 3V, 04/21/2022, 11:52. FINDINGS: Bones: Fixation screws of the 3rd and 4th digits, and at the distal aspects of the 2nd and 3rd metatarsal bones. Distal phalanx of the 1st toe is missing. The 2nd toe is missing No acute fractures or dislocations. Diffuse foci of osteopenia throughout the tarsal bones and bases of the metatarsal bones. Calcaneal enthesophytes. Soft tissues: No tibiotalar joint effusion. Achilles tendon appears normal. There is soft tissue swelling along the plantar aspect of the foot. IMPRESSION: There is diffuse foci of osteopenia throughout the midfoot concerning for osteomyelitis. Dictated by: Pavan Brandt M.D. on 11/21/2023 at 16:26 Approved by: Pavan Brandt M.D. on 11/21/2023 at 16:36
== END ==
PROVIDERS: PCP Family Medicine; Referring Provider Surgery; Visit Provider Surgery
DX: T14.8XXA Other injury of unspecified body region, initial encounter (principal); L08.9 Local infection of the skin and subcutaneous tissue, unspecified; M85.872 Other specified disorders of bone density and structure, left ankle and foot; M85.871 Other specified disorders of bone density and structure, right ankle and foot; M79.89 Other specified soft tissue disorders
CPT/HCPCS: 73630; 87070; 87075; 87205

== ENCOUNTER → 2023-11-28 08:49 | Outpatient (CLI) | payer OTHER, SELFPAY ==
[2022-02-21 12:31] VITALS: BMI 28.7
--- NOTE | 2023-11-28 08:50 | DI.MRI.S_ITS ---
PROCEDURE: MR FOOT RT WO/W CON INDICATIONS: concerns of osteomyelitis on XR TECHNIQUE: Multiphasic, multisequence MRI of the forefoot was performed, before and after intravenous contrast administration. COMPARISON: [facility], CR, XR FOOT RT MIN 3V, 11/21/2023, 10:57. [facility], CR, XR FOOT LT MIN 3V, 11/21/2023, 10:57. [facility], MR, MR FOOT RT WO/W CON, 02/21/2022, 14:30. FINDINGS: Image quality: Excellent. Bones and joints: Amputation of the 1st toe at the 1st proximal phalangeal head. Amputation 2nd toe at the 2nd metatarsophalangeal head. Screw fixation of the 2nd and 3rd metatarsal head. Screw fixation of the 3rd and 4th proximal phalangeal joint. Multifocal degenerative changes of the midfoot, most pronounced and moderate about the navicular and cuneiform articulation. No marrow edema with confluent T1 hypointensity to suggest osteomyelitis. Soft tissues: Severe fatty atrophy of the intrinsic musculature of the forefoot. Thickening of the central cord of the plantar fascia, partially visualized, concerning for plantar fasciitis. The flexor tendons, and the extensor tendons are unremarkable. there is mild subcutaneous edema lateral to the 5th metatarsal head, with small amount of effusion at the 5th metatarsophalangeal joint. Small amount of fluid plantar to the 5th metatarsal head. No drainable fluid collection. IMPRESSION: 1. Postprocedure changes as described above. 2. Subcutaneous edema about the 5th metatarsal head, nonspecific and may represent cellulitis. No drainable fluid collection. No osteomyelitis. Dictated by: Erica Lawrence M.D. on 11/28/2023 at 22:48 Approved by: Erica Lawrence M.D. on 11/28/2023 at 23:00
== END ==
PROVIDERS: PCP Family Medicine; Referring Provider Surgery; Visit Provider Surgery
DX: E11.621 Type 2 diabetes mellitus with foot ulcer (principal); L97.519 Non-pressure chronic ulcer of other part of right foot with unspecified severity; Z89.411 Acquired absence of right great toe; Z89.421 Acquired absence of other right toe(s)
CPT/HCPCS: 73720; A9579

== ENCOUNTER → 2023-11-28 11:25 | Outpatient (CLI) | payer OTHER, SELFPAY ==
[2022-02-21 12:31] VITALS: BMI 28.7
== END ==
PROVIDERS: PCP Family Medicine; Referring Provider Family Medicine; Visit Provider Surgery
DX: E11.621 Type 2 diabetes mellitus with foot ulcer (principal); L97.512 Non-pressure chronic ulcer of other part of right foot with fat layer exposed; L97.522 Non-pressure chronic ulcer of other part of left foot with fat layer exposed; R20.8 Other disturbances of skin sensation; R23.4 Changes in skin texture; Z79.01 Long term (current) use of anticoagulants
CPT/HCPCS: 99213

== ENCOUNTER → 2023-12-05 10:04 | Outpatient (CLI) | payer OTHER, SELFPAY ==
[2022-02-21 12:31] VITALS: BMI 28.7
== END ==
PROVIDERS: PCP Family Medicine; Referring Provider Podiatrist; Visit Provider Surgery
DX: E11.42 Type 2 diabetes mellitus with diabetic polyneuropathy (principal); L84 Corns and callosities; R23.4 Changes in skin texture; Z89.421 Acquired absence of other right toe(s)
CPT/HCPCS: 99213; 99214

== ENCOUNTER → 2023-12-18 09:33 | Outpatient (CLI) | payer OTHER, SELFPAY ==
[2022-02-21 12:31] VITALS: BMI 28.7
== END ==
LOC: WC 09:35
PROVIDERS: PCP Family Medicine; Referring Provider Podiatrist; Visit Provider Surgery
DX: Z09 Encounter for follow-up examination after completed treatment for conditions other than malignant neoplasm (principal); Z86.31 Personal history of diabetic foot ulcer
CPT/HCPCS: 99211; 99213